=== PATIENT | male | born 1965 | race Caucasian/White ===

== ENCOUNTER 2017-09-07 21:48 | Emergency (ER) | payer OTHER ==
[2017-09-07 23:23] VITALS: RESP 18
[2017-09-07] MEDS ORDERED: IBUPROFEN 800 MG TAB PO STA (23:52)
--- NOTE | 2017-09-07 23:55 | ED ---
Chest Pain HPI - General Chief Complaint: Chest Pain Stated Complaint: Muscle pain Time Seen by Provider: 09/07/17 23:40 Source: patient, RN notes reviewed Mode of arrival: ambulatory Limitations: no limitations - History of Present Illness Initial Comments: 23:40 this is a 52-year-old male who states he had the onset of left sided chest pain over last several days after bending over a couch initially popping sensation to his left anterior chest. He denies any fevers chills nausea vomiting sweats no cough chest pain with certain movements and deep breathing. He states that sharp and stabbing rather severe. He did not take any pain medications today 4. He has no ALLERGIES to anything. - Related Data Home Medications Medication Instructions Recorded Confirmed Albuterol Inhaler [Ventolin Hfa 2 puff INHALATION RT-Q6H PRN 05/31/16 05/31/16 Inhaler] Atenolol 100 mg PO DAILY 05/31/16 05/31/16 Atorvastatin [Lipitor] 20 mg PO HS 05/31/16 05/31/16 Buprenorphine HCl/Naloxone HCl 1 film SL BID 05/31/16 05/31/16 [Suboxone 4 mg-1 mg Sl Film] FLUoxetine HCL 40 mg PO DAILY 05/31/16 05/31/16 Meloxicam [Mobic] 7.5 mg PO BID 05/31/16 05/31/16 OLANZapine [ZyPREXA] 2.5 mg PO DAILY 05/31/16 05/31/16 Phentermine HCl [Adipex-P] 37.5 mg PO DAILY 05/31/16 05/31/16 Propylthiouracil 50 mg PO BID 05/31/16 05/31/16 cloNIDine HCL [Catapres] 0.1 mg PO TID 05/31/16 05/31/16 Previous Rx's Medication Instructions Recorded Ibuprofen 800 mg PO Q6HR PRN #20 tablet 09/08/17 Allergies Allergy/AdvReac Type Severity Reaction Status Date / Time No Known Allergies Allergy Verified 09/07/17 23:23 Review of Systems ROS Statement: Those systems with pertinent positive or pertinent negative responses have been documented in the HPI. ROS Other: All systems not noted in ROS Statement are negative. EKG Findings - EKG Results: EKG: interpreted by ДМИТРИЙ, sinus rhythm (Sinus rhythm with a rate of 62. We'll 174 QRS duration 96. QT since QTC of 46/412 this is normal. EKG with some artifact present.) Past Medical History Past Medical History: COPD, Hypertension History of Any Multi-Drug Resistant Organisms: None Reported Past Surgical History: No Surgical Hx Reported Past Psychological History: Anxiety, Depression Smoking Status: Current every day smoker Past Alcohol Use History: None Reported Past Drug Use History: None Reported General Exam - General Exam Comments Initial Comments: This is a well-developed well-nourished awake alert oriented 3 male Limitations: no limitations General appearance: alert, in no apparent distress Head exam: Present: atraumatic, normocephalic, normal inspection Eye exam: Present: normal appearance, PERRL, EOMI. Absent: scleral icterus, conjunctival injection, periorbital swelling ENT exam: Present: normal exam, mucous membranes moist Neck exam: Present: normal inspection. Absent: tenderness, meningismus, lymphadenopathy Respiratory exam: Present: normal lung sounds bilaterally, chest wall tenderness (Reproducible tenderness palpation of the left costochondral margin and costosternal margin. No definite step-off or crepitation no gross deformity.). Absent: respiratory distress, wheezes, rales, rhonchi, stridor Cardiovascular Exam: Present: regular rate, normal rhythm, normal heart sounds. Absent: systolic murmur, diastolic murmur, rubs, gallop, clicks GI/Abdominal exam: Present: soft, normal bowel sounds. Absent: distended, tenderness, guarding, rebound, rigid Extremities exam: Present: normal inspection, full ROM, normal capillary refill. Absent: tenderness, pedal edema, joint swelling, calf tenderness Back exam: Present: normal inspection Neurological exam: Present: alert, oriented X3, CN II-XII intact Psychiatric exam: Present: normal affect, normal mood Skin exam: Present: warm, dry, intact, normal color. Absent: rash Course Vital Signs 09/07/17 09/08/17 23:20 00:19 Temperature 97.1 F L 97.5 F L Pulse Rate 64 63 Respiratory 18 18 Rate Blood Pressure 202/78 169/82 O2 Sat by Pulse 96 96 Oximetry Chest Pain MDM - MDM I did review the imaging and reports no acute findings. I did discuss the findings with the patient the presentation is consistent with costochondritis. 3 place on anti-inflammatories. Patient is a smoker we did discuss the need for smoking cessation. Patient does state he is down to about less than 1 pack per day. Disposition Clinical Impression: Costalchondritis, Chest wall syndrome Disposition: HOME SELF-CARE Condition: Good Instructions: Costochondritis (ED) Prescriptions: Ibuprofen 800 mg PO Q6HR PRN #20 tablet PRN Reason: Pain Referrals: Dinesh Kirkpatrick MD [Primary Care Provider] - 1-2 days
[2017-09-08 00:20] VITALS: BP 169/82; PULSE 63
--- NOTE | 2017-09-08 00:29 | XR ---
EXAMINATION TYPE: XR ribs LT w pa chest xray DATE OF EXAM: 09/08/2017 COMPARISON: 05/31/2016 HISTORY: Chest pain TECHNIQUE: 4 views FINDINGS: Heart and mediastinum are normal. Lungs are clear. Diaphragm is normal. Left ribs appear in tact. There is no sign of pleural effusion or pneumothorax. IMPRESSION: Normal chest. Normal left ribs. No change.
[2017-09-08 01:06] VITALS: TEMP 97.9
== END 2017-09-08 01:06 | disposition home or self-care (01) ==
LOC: EC 21:48
DX: M94.0 Chondrocostal junction syndrome [Tietze] (principal); I10 Essential (primary) hypertension; F32.9 Major depressive disorder, single episode, unspecified; F41.9 Anxiety disorder, unspecified; F17.200 Nicotine dependence, unspecified, uncomplicated; Z79.1 Long term (current) use of non-steroidal anti-inflammatories (NSAID); Z79.899 Other long term (current) drug therapy
CPT/HCPCS: 93005; 99285

== ENCOUNTER 2019-02-13 02:04 | Inpatient (IN) | payer MEDICAID, OTHER ==
--- NOTE | 2019-02-13 02:25 | ED ---
Psych HPI - General Source: patient, RN notes reviewed, old records reviewed Mode of arrival: ambulatory - History of Present Illness MD Complaint: suicidal ideation, feels depressed -: unknown Associated Psychiatric Symptoms: depression, suicidal ideation History of same: Yes Improves With: none Worsens With: none Context: recent alcohol abuse Associated Symptoms: denies other symptoms Treatments Prior to Arrival: placed on mental health hold If Self Harm: admits thoughts of self harm <Narciso Merritt - Last Filed: 02/13/19 02:24> <Jese Valencia - Last Filed: 02/13/19 06:55> - General Chief Complaint: Psychiatric Symptoms Stated Complaint: Mental Health Time Seen by Provider: 02/13/19 02:18 - History of Present Illness Initial Comments: This is a 54-year-old male brought to ER for evaluation. Patient's but ER for evaluation of psychiatric illness, history of mental health. History of alcohol use today. Patient admits to positive psychiatric illness, but in by PD (Narciso Merritt) - Related Data Home Medications Medication Instructions Recorded Confirmed No Known Home Medications 02/13/19 02/13/19 Allergies Allergy/AdvReac Type Severity Reaction Status Date / Time No Known Allergies Allergy Verified 09/07/17 23:23 Review of Systems ROS Other: All systems not noted in ROS Statement are negative. <Narciso Merritt - Last Filed: 02/13/19 02:24> ROS Other: All systems not noted in ROS Statement are negative. <Jese Valencia - Last Filed: 02/13/19 06:55> ROS Statement: Those systems with pertinent positive or pertinent negative responses have been documented in the HPI. Past Medical History Past Medical History: COPD, Hypertension History of Any Multi-Drug Resistant Organisms: None Reported Past Surgical History: No Surgical Hx Reported Past Psychological History: Anxiety, Depression Smoking Status: Current every day smoker Past Alcohol Use History: None Reported Past Drug Use History: None Reported <Narciso Merritt - Last Filed: 02/13/19 02:24> General Exam Limitations: no limitations General appearance: alert, in no apparent distress Head exam: Present: atraumatic, normocephalic, normal inspection Eye exam: Present: normal appearance, PERRL, EOMI. Absent: scleral icterus, conjunctival injection, periorbital swelling ENT exam: Present: normal exam, mucous membranes moist Neck exam: Present: normal inspection. Absent: tenderness, meningismus, lymphadenopathy Respiratory exam: Present: normal lung sounds bilaterally. Absent: respiratory distress, wheezes, rales, rhonchi, stridor Cardiovascular Exam: Present: regular rate, normal rhythm, normal heart sounds. Absent: systolic murmur, diastolic murmur, rubs, gallop, clicks GI/Abdominal exam: Present: soft, normal bowel sounds. Absent: distended, tenderness, guarding, rebound, rigid Extremities exam: Present: normal inspection, full ROM, normal capillary refill. Absent: tenderness, pedal edema, joint swelling, calf tenderness Back exam: Present: normal inspection Neurological exam: Present: alert, oriented X3, CN II-XII intact Psychiatric exam: Present: normal affect, normal mood Skin exam: Present: warm, dry, intact, normal color. Absent: rash <Narciso Merritt - Last Filed: 02/13/19 02:24> Course <Nacriso Merritt - Last Filed: 02/13/19 02:24> Vital Signs 02/13/19 02:10 Temperature 98.2 F Pulse Rate 102 H Respiratory 20 Rate Blood Pressure 184/98 O2 Sat by Pulse 96 Oximetry - Reevaluation(s) Reevaluation #1: 02/13/19 02:25 Medical clear for psychiatric illness (Narciso Merritt) Medical Decision Making <Jese Valencia - Last Filed: 02/13/19 06:55> - Medical Decision Making The patient was evaluated by psych service and will be admitted for inpatient treatment. He was physically and verbally threatening and did require chemical sedation. (Jese Valencia) Disposition <Narciso Merritt - Last Filed: 02/13/19 02:24> <Jese Valencia - Last Filed: 02/13/19 06:55> Clinical Impression: Depression, Suicidal ideation Disposition: TRANSFER TO PSYCH HOSP/UNIT Condition: Stable
[2019-02-13] MEDS ORDERED: ZIPRASIDONE 20 MG VIAL IM STA (05:39)
[2019-02-13] MEDS ORDERED: LORazepam 2 MG/ML INJ IM STA (05:40)
[2019-02-13] MEDS ORDERED: ZIPRASIDONE 20 MG VIAL IM PRN (06:15)
[2019-02-13] MEDS ORDERED: MAGNESIUM HYDROXIDE 2,400 MG/10 ML CUP PO PRN (06:15)
[2019-02-13] MEDS ORDERED: MAG HYDROX/AL HYDROX/SIMETH 30 ML CUP PO PRN (06:15)
[2019-02-13] MEDS ORDERED: LORazepam 2 MG/ML INJ IM PRN (06:18)
--- NOTE | 2019-02-13 07:49 | ED ---
Medical Decision Making - Medical Decision Making A clinical certification was filled out by me. Disposition Clinical Impression: Depression, Suicidal ideation Disposition: TRANSFER TO PSYCH HOSP/UNIT Condition: Stable
[2019-02-13 08:41] VITALS: BMI 27.7
[2019-02-13] MEDS: NICOTINE 14MG/24HR PATCH TRANSDERM SCH (10:48)
--- NOTE | 2019-02-13 14:24 | P.HP ---
Psychiatric H&P - . H&P Date: 02/13/19 History & Physical: Allergies Allergy/AdvReac Type Severity Reaction Status Date / Time No Known Allergies Allergy Verified 09/07/17 23:23 Vital Signs Temp 98.1 F 02/13/19 08:51 Pulse 95 02/13/19 08:51 Resp 16 02/13/19 08:51 BP 140/80 02/13/19 08:51 Pulse Ox 95 02/13/19 08:51 Intake & Output 02/12/19 02/13/19 02/13/19 18:59 06:59 18:59 Weight 90.174 kg 89.4 kg 02/13/19 14:15 Identification: Patient is a 54-year-old male who was brought to the emergency room after trying to cut his left wrist, stating that he wanted to kill himself and he is a burden to everybody History of Present Illness: Patient states that he tried to cut his forehead, cut his left wrist and drank a 12 pack of beer yesterday because he was feeling depressed. He states he is been feeling depressed for 10 years. Patient states that he can identify no current problems that precipitated this. He states that he's been treated by his primary care physician and a number of years ago with Zyprexa and Prozac and did better when he stopped seeing the doctor for several years and so has not been on medication for the last several years. Patient states that he is not been sleeping well, feeling depressed, no motivation fee ling tired, more withdrawn and irritable. He states that he has felt this way for the last 10 years and at times when a fan is running he hears voices telling him to kill himself. He states that he heard them yesterday for the first time in a long time. He states he is unable to describe why he feels that he is a burden to everyone. Patient states that he has never attempted suicide in the past but has had suicidal thoughts in the past. Patient states that he's been drinking a 12 pack several week for the last several months and states that he has been sober for a number of years prior to this. He states when he was in his 20s he was drinking a half gallon of liquor on the weekends. Patient can describe not other precipitants recently to his restarting his use of alcohol. Patient does not endorse a history of manic symptoms, paranoid ideation or anxiety. He reports no prior treatment other than with his primary care physician with an unknown dosage of Zyprexa and an unknown dosage of Prozac for several years and then he stopped taking them. Past Psychiatric History: No prior inpatient history, prior treatment by PCP was Zyprexa and Prozac none for the last several years Past Medical/Surgical History: Patient has COPD and hypertension and is currently not on medication no surgical history Family History: Patient states that his mother has an unknown psychiatric disor josefina, there are no alcohol or drug problems in the family and no one is completed suicide Social History: Patient was born in [place] and raised in [place] and his parents when he was 9 years of age and his mother several times. He has 2 brothers and one sister. 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 He been for 34 years and has 4 sons all of whom are living out of the house. He states his does work. He lives with his and is not currently employed supported on disability. He denies any abuse history. Substance Use History: Patient states he began using alcohol at the age of 15 and when he was in his 20s drinking a half gallon on the weekends he states that he quit for a number of years sometime in his early 30s and began drinking several months ago using a 12 pack several times a week. Patient states he began using marijuana at the age of 18 and has continued to use it on a daily basis. He denies any other drug use history and states that he does use tobacco products Legal History: Patient states he was charged with assault in the past Mental status: Appearance/Attitude: Patient is dressed in a hospital gown, has multiple superficial cuts on his for head and several also on his left wrist, he makes intermittent eye contact and is cooperative Behavior: Patient does not display any psychomotor agitation or retardation. Speech/Language: Speech is spontaneous of normal volume and rhythm and he is coherent. Thought Process: Patient is goal-directed there is no evidence of loose association or flight of ideas Thought Content: Patient states he is not currently hearing voices but did hear them yesterday, denies any visual hallucinations and no delusions or paranoid ideation or elicited. Patient states that he is feeling depressed, withdrawn tired with little energy or interest to do things. Patient states that he also feels like he is a burden to everyone and has not been sleeping well. Suicidal/Homicidal Ideation: Patient denies any current suicidal or homicidal ideation Sensorium/Cognition: Patient is alert and oriented to person, place, and time and his recent and remote memory are grossly intact Mood/Affect: Patient's mood is depressed and his affect is blunted Insight/Judgment: Patient's insight and judgment are fair Intellectual Functioning: Patient's intellectual functioning appears average Strength/Weakness: Patient has housing financial support/use of alcohol and drugs, lack of compliance with treatment Assessment: She presents with a history of depression for a number of years having only received treatment for several years from his primary care physician. Patient reports no symptoms of farrah, anxiety and states that in the past when fan has been running he's heard voices telling him to hurt himself and of a derogatory nature. He states that he has used alcohol since he was in his teens and began using alcohol again several months ago at a 12 pack several week. Patient states that he is unable to report why he restarted using alcohol and did yesterday hear voices telling him to kill himself. Patient reports feeling tired, having poor sleep no motivation, socially withdrawn as well as feeling a burden to everybody. Patient states he is currently not hearing voices and is currently not feeling suicidal and was ambivalent about remaining in the hospital. Admission Diagnosis: Major depressive disorder, recurrent, severe; alcohol use disorder, moderate; cannabis use disorder, moderate Plan: Patient was admitted on a voluntary basis, placed on routine observation in group and activity therapy were ordered. Patient also had routine laboratory studies as well as a medical consultation. Patient and I discussed treating his depression and we agreed to restart Prozac as the patient felt that it been helpful in the past and I reviewed the use and side effects and he will begin 20 mg in the morning. At this time we're not beginning an antipsychotic as the patient was intoxicated yesterday and is currently not hearing voices. Patient will also be seen by the medical territory manager and should he require medication for his blood pressure they will be prescribing it as he has not been taking meds for several years. Patient was encouraged to attend groups and activities. Patient requires hospitalization to stabilize his mood.
--- NOTE | 2019-02-13 15:05 | P.CONS ---
History of Present Illness - Reason for Consult Consult date: 02/13/19 Medical management COPD, hypertension, nicotine dependence Requesting physician: Harriett Rodriguez - Chief Complaint suicidal, depression - History of Present Illness This is a 54-year-old gentleman with history of COPD, hypertension, anxiety, depression, ongoing nicotine dependence, uses Xanax off the street to calm himself down, brought into the ER by police department for further evaluation of psychiatric illness, alcohol abuse, depression, suicidal and multiple other medical issues.apparently spouse Petitiioned patient secondary to suicidal ideation with patient performing superficial cuts of the left wrist, forehead and nose,consuming alcohol. Once in the ER,became agitated, physically and verbally threatening.Evaluated by psychiatry,sarthak Mclaughlin admitted to mental health unit.Denies chest pain, palpitations or shortness of breath. Review of Systems ROS Statement: Those systems with pertinent positive or pertinent negative responses have been documented in the HPI. ROS Other: All systems not noted in ROS Statement are negative. Past Medical History Past Medical History: COPD, Hypertension History of Any Multi-Drug Resistant Organisms: None Reported Past Surgical History: No Surgical Hx Reported Smoking Status: Current every day smoker Medications and Allergies Home Medications Medication Instructions Recorded Confirmed Type No Known Home Medications 02/13/19 02/13/19 History Allergies Allergy/AdvReac Type Severity Reaction Status Date / Time No Known Allergies Allergy Verified 09/07/17 23:23 Physical Exam Vitals: Vital Signs Temp Pulse Pulse Resp BP BP Pulse Ox 02/13/19 08:51 98.1 F 95 16 140/80 95 02/13/19 08:35 98.1 F 95 16 140/80 95 02/13/19 02:10 98.2 F 102 H 20 184/98 96 Intake and Output 02/12/19 02/13/19 02/13/19 22:59 06:59 14:59 Other: Weight 90.174 kg 89.4 kg Assessment and Plan Assessment: -Suicidal, -Depression -Alcohol abuse -COPD, stable -Hypertension -Ongoing nicotine dependence -Polysubstance abuse, including Xanax off the street Plan: Continue on current medication regime ,monitoring and symptomatic treatment. Her moods have been reviewed and resumed, accordingly. Nicotine patch added to med regime, smoking cessation readdressed. Follow closely with psychiatry. Further recommendations to follow. The impression and plan of care has been dictated as directed. : I performed a history and examination of this patient, discussed the same with the dictator. I agree with the dictator's note ,documented as a scribe. Any additional findings or plans will be noted. Time taken: 35 minutes
[2019-02-13] MEDS: BACITRACIN 500 UNIT/GM OINT 28.4 GM TUBE TOPICAL SCH (21:08)
[2019-02-14] MEDS: ACETAMINOPHEN TAB 325 MG TAB PO PRN (01:45)
[2019-02-14] MEDS: LORazepam 1 MG TAB PO PRN ×3 (01:47→22:50)
[2019-02-14] MEDS: FLUoxetine HCL 20 MG CAP PO SCH (08:08)
[2019-02-14] MEDS: BACITRACIN 500 UNIT/GM OINT 28.4 GM TUBE TOPICAL SCH ×2 (08:08→20:43)
[2019-02-14] MEDS: NICOTINE 14MG/24HR PATCH TRANSDERM SCH (08:08)
[2019-02-14] MEDS: ALBUTEROL INHALER 60 PUFF/8 GM INHALER INHALATION PRN ×2 (08:11→18:28)
[2019-02-14 08:54] LABS: Basophils # (A) 0.1 k/uL (0-0.2); Basophils % (A) 1 %; Eosinophils # (A) 0.2 k/uL (0-0.7); Eosinophils % (A) 2 %; HCT 55.7 % (39.0-53.0); HGB 18.5 gm/dL (13.0-17.5); Lymphocytes # (A) 3.4 k/uL (1.0-4.8); Lymphocytes % (A) 31 %; MCH 29.9 pg (25.0-35.0); MCHC 33.2 g/dL (31.0-37.0); MCV 90.2 fL (80.0-100.0); Mean Platelet Volume 7.7; Monocytes # (A) 0.6 k/uL (0-1.0); Monocytes % (A) 5 %; Neutrophils # (A) 6.5 k/uL (1.3-7.7); Neutrophils % (A) 59 %; Platelet Count 229 k/uL (150-450); RBC 6.17 m/uL (4.30-5.90); RDW 13.2 % (11.5-15.5); WBC 11.1 k/uL (3.8-10.6)
[2019-02-14] MEDS ORDERED: amLODIPine 5 MG TAB PO SCH (09:00)
[2019-02-14 09:12] LABS: ALT 21 U/L (21-72); AST 35 U/L (17-59); African American GFR (CKD) >90 (>60 ml/min/1.73 sqM); Alkaline Phosphatase 45 U/L (38-126); Anion Gap 9 mmol/L; Bilirubin, Delta 0.3 mg/dL (0.0-0.2); Bilirubin,Unconjugated 0.8 mg/dL (0.0-1.1); Blood Urea Nitrogen 20 mg/dL (9-20); Carbon Dioxide 29 mmol/L (22-30); Chloride 101 mmol/L (98-107); Cholesterol 239 mg/dL (<200); Glucose 105 mg/dL (74-99); HDL Cholesterol 79 mg/dL (40-60); LDL Cholesterol,Calculated 129 mg/dL (0-99); Potassium 5.3 mmol/L (3.5-5.1); Sodium 139 mmol/L (137-145); Total Bilirubin 1.1 mg/dL (0.2-1.3); Total Protein 7.8 g/dL (6.3-8.2); Triglycerides 156 mg/dL (<150)
--- NOTE | 2019-02-14 14:01 | P.PN ---
Progress Note - Text Progress Note Date: 02/14/19 Interval History: Patient is a 54-year-old male who was seen today who reports that he hasn't really been drinking that frequently her that much and states he must not be able to hold his alcohol because attempting suicide is not something that he would do. He does acknowledge that he has been feeling depressed, but denies that he is feeling a burden to his family. Patient states that he doesn't attend groups or activities because he has problems and small groups. 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 Mental Status: Appearance/Attitude: Patient is neatly dressed, makes eye contact and was cooperative Behavior: Patient does not exhibit any psychomotor agitation or retardation. Speech/Language: Speech is spontaneous of normal volume and rhythm and he is coherent Thought Process: Patient is goal-directed there is no evidence of loose association or flight of ideas Thought Content: Patient denies any auditory or visual hallucinations no delusions or paranoid ideation or elicited. Patient states that he's still feeling depressed, doesn't sleep well at night because he usually is up in the middle the night to help his with her paper route. He states he is not attending groups or activities because he gets anxious in groups of people. Patient denies any sweating, shaking or difficulty eating Suicidal/Homicidal Ideation: Patient denies any current suicidal or homicidal ideation Sensorium/Cognition: Patient is alert and oriented to person, place, and time and his recent and remote memory grossly intact Mood/Affect: Patient's mood remains slightly depressed and his affect blunted Insight/Judgment: Patient's insight and judgment are fair Assessment: Patient states that he still feeling depressed, he has been able to eat not having any sweating or shaking. Patient states that he hasn't been attending groups or activities because he gets anxious in groups. Patient states that this almost of occurred because he had a bad reaction to the alcohol. Patient states that he didn't think he drank that much. Patient reports that his any side effects from the Prozac. 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 Plan: Patient will continue on Prozac 20 mg in the morning to target his mood and melatonin 3 mg to assist with sleep. Patient and I discussed possible discharge early next week should the patient's symptoms improve. Patient continues to require hospitalization at this time to target his mood.
[2019-02-14] MEDS ORDERED: amLODIPine 5 MG TAB PO STA (15:04)
[2019-02-14 19:13] LABS: Hemoglobin A1C 5.7 % (4.0-6.0)
[2019-02-14] MEDS: MELATONIN 3 MG TABLET PO SCH (20:41)
[2019-02-14] MEDS: ATENOLOL 25 MG TAB PO SCH (21:50)
[2019-02-15] MEDS: NICOTINE 14MG/24HR PATCH TRANSDERM SCH (07:50)
[2019-02-15] MEDS: amLODIPine 10 MG TAB PO SCH (07:51)
[2019-02-15] MEDS: FLUoxetine HCL 20 MG CAP PO SCH (07:51)
[2019-02-15] MEDS: BACITRACIN 500 UNIT/GM OINT 28.4 GM TUBE TOPICAL SCH ×2 (07:51→20:10)
[2019-02-15] MEDS: ATENOLOL 25 MG TAB PO SCH (07:51)
[2019-02-15] MEDS: ALBUTEROL INHALER 60 PUFF/8 GM INHALER INHALATION PRN ×2 (08:22→18:27)
--- NOTE | 2019-02-15 10:02 | P.PN ---
Progress Note - Text Interval history: The patient's found in his room he follows me to an interview room. The patient states that he was admitted after he attempted suicide while intoxicated with alcohol. He had apparently cut his left anterior wrist several times superficially. Today he states that he is not suicidal and it was only because he had a bad reaction alcohol that this happened. He admits that he has been depressed. He previously had been prescribed Prozac in the past and had been off of it for 2 years and the medicine has been restarted. He has no questions or concerns regarding Prozac. He states that he has decided he would no longer use alcohol and doesn't need any further treatment for substance use. He has not been attending groups. We discussed the importance of attending groups in terms of coping skill development and assisting us in evaluating him. He will give that consideration. He expects that his may visit this evening. Mental status exam: The patient is alert he is dressed in his own clothing. Hygiene grooming adequate. Speech is fluent and spontaneous nonpressured. He denies having any suicidal or homicidal ideation intent or plan. He states his mood is all right. He reports no auditory or visual hallucinations or any specific delusions. He demonstrates no tangential thinking loose associations or flight of ideas. He does not appear hypomanic or manic. Insight and judgment grossly intact. He demonstrates no verbal or physical aggressiveness. He demonstrates no visible signs of alcohol withdrawal in terms of tremor. Affect remains constricted throughout the session. He remains oriented to person place and date. Plan: Depression, the patient will continue on the Prozac as written. He is encouraged to participate in the milieu. Vital signs reviewed. We will continue to monitor him for safety. We will look for input from his family after they visit this weekend.
[2019-02-15] MEDS: ACETAMINOPHEN TAB 325 MG TAB PO PRN (10:22)
[2019-02-15] MEDS: MELATONIN 3 MG TABLET PO SCH (20:10)
[2019-02-15] MEDS: LORazepam 1 MG TAB PO PRN (20:10)
[2019-02-16] MEDS: ALBUTEROL INHALER 60 PUFF/8 GM INHALER INHALATION PRN ×3 (05:46→19:28)
[2019-02-16] MEDS: ACETAMINOPHEN TAB 325 MG TAB PO PRN (06:45)
[2019-02-16] MEDS: amLODIPine 10 MG TAB PO SCH (08:16)
[2019-02-16] MEDS: FLUoxetine HCL 20 MG CAP PO SCH (08:16)
[2019-02-16] MEDS: BACITRACIN 500 UNIT/GM OINT 28.4 GM TUBE TOPICAL SCH ×2 (08:17→20:49)
[2019-02-16] MEDS: NICOTINE 14MG/24HR PATCH TRANSDERM SCH (08:17)
[2019-02-16] MEDS: ATENOLOL 25 MG TAB PO SCH (08:17)
[2019-02-16] MEDS: LORazepam 1 MG TAB PO PRN (13:15)
--- NOTE | 2019-02-16 13:28 | P.PN ---
Progress Note - Text Interval history: The patient is found in his room reading a book he follows me to an interview room. He states his mood is fine. Several times he indicates he would like to be discharged as soon as possible. He reports that he is concerned about his who has difficulties with her knee and she needs his help at home. He has no questions or concerns regarding the Prozac. Continues to refuse attending groups. Mental status exam: The patient is alert he is dressed in his own clothing. He has numerous visible tattoos. Hygiene grooming adequate. Speech is fluent spontaneous nonpressured. Thought process is linear. He is reporting no suicidal or homicidal ideation intent or plan. Reporting no auditory or visual hallucinations or any specific delusions. There is no observed evidence of psychosis. He demonstrates no symptoms of hypomania or farrah. Insight and judgment improving. He demonstrates no verbal or physical aggressiveness. He remains oriented to person place and date. He demonstrates no evidence of tremors related to alcohol withdrawal. Plan: The patient will continue on current medication. Although he is refusing he is encouraged to attempt group participation. Vital signs reviewed. We will continue monitoring him for safety. It does appear he is clinically stabilizing.
[2019-02-16] MEDS: MELATONIN 3 MG TABLET PO SCH (20:50)
[2019-02-17 06:38] VITALS: TEMP 97.7
[2019-02-17] MEDS: FLUoxetine HCL 20 MG CAP PO SCH (08:05)
[2019-02-17] MEDS: amLODIPine 10 MG TAB PO SCH (08:05)
[2019-02-17] MEDS: ATENOLOL 25 MG TAB PO SCH (08:05)
[2019-02-17] MEDS: NICOTINE 14MG/24HR PATCH TRANSDERM SCH (08:05)
[2019-02-17] MEDS: BACITRACIN 500 UNIT/GM OINT 28.4 GM TUBE TOPICAL SCH (08:05)
[2019-02-17 09:06] VITALS: BP 141/83; PULSE 81; RESP 18
[2019-02-17] MEDS: ALBUTEROL INHALER 60 PUFF/8 GM INHALER INHALATION PRN (09:16)
--- NOTE | 2019-02-17 11:44 | P.DS ---
Providers Date of admission: 02/13/19 05:30 Expected date of discharge: 02/17/19 Attending physician: Harriett Rodriguez MD Consults: 02/13/19 06:15 Consult Physician Routine Consulting Provider: Dinesh Kirkpatrick Consult Reason/Comments: For H & P for Medical Follow Up Do you want consulting provider notified?: Already Contacted Primary care physician: Dinesh Kirkpatrick Hospital Course: Discharge Diagnosis: Major depressive disorder, recurrent severe; alcohol use disorder, moderate; cannabis use disorder, moderate Reason for Admission: Patient is a 54-year-old male who was brought to the emergency room after trying to cut his left wrist, stating that he wanted to kill himself and he is a burden to everybody. Patient states that he tried to cut his forehead, cut his left wrist and drank a 12 pack of beer yesterday because he was feeling depressed. He states he is been feeling depressed for 10 years. Patient states that he can identify no current problems that precipit ated this. He states that he's been treated by his primary care physician and a number of years ago with Zyprexa and Prozac and did better when he stopped seeing the doctor for several years and so has not been on medication for the last several years. Patient states that he is not been sleeping well, feeling depressed, no motivation feeling tired, more withdrawn and irritable. He states that he has felt this way for the last 10 years and at times when a fan is running he hears voices telling him to kill himself. He states that he heard them yesterday for the first time in a long time. He states he is unable to describe why he feels that he is a burden to everyone. Patient states that he has never attempted suicide in the past but has had suicidal thoughts in the past. Patient states that he's been drinking a 12 pack several week for the last several months and states that he has been sober for a number of years prior to this. He states when he was in his 20s he was drinking a half gallon of liquor on the weekends. Patient can describe not other precipitants recently to his restarting his use of alcohol. Patient does not endorse a history of manic symptoms, paranoid ideation or anxiety. He reports no prior treatment other than with his primary care physician with an unknown dosage of Zyprexa and an unknown dosage of Prozac for several years and then he stopped taking them. Mental status on Admission: Appearance/Attitude: Patient is dressed in a hospital gown, has multiple superficial cuts on his for head and several also on his left wrist, he makes intermittent eye contact and is cooperative Behavior: Patient does not display any psychomotor agitation or retardation. Speech/Language: Speech is spontaneous of normal volume and rhythm and he is coherent. Thought Process: Patient is goal-directed there is no evidence of loose association or flight of ideas Thought Content: Patient states he is not currently hearing voices but did hear them yesterday, denies any visual hallucinations and no delusions or paranoid ideation or elicited. Patient states that he is feeling depressed, withdrawn tired with little energy or interest to do things. Patient states that he also feels like he is a burden to everyone and has not been sleeping well. Suicidal/Homicidal Ideation: Patient denies any current suicidal or homicidal ideation Sensorium/Cognition: Patient is alert and oriented to person, place, and time and his recent and remote memory are grossly intact Mood/Affect: Patient's mood is depressed and his affect is blunted Insight/Judgment: Patient's insight and judgment are fair Hospital Course: Patient was admitted on a voluntary basis, placed on routine observation and group and activity therapy were ordered. Patient was also ordered routine laboratory studies as well as a medical consultation. Patient was seen by his primary care physician and started on a Ventolin inhaler, Norvasc, Tenormin and bacitracin was ordered for his superficial lacerations. Patient and I discussed the use and side effects of Prozac and he was begun on 20 mg to target his depressive symptoms and melatonin 3 mg at bedtime to assist with sleep. Patient and I also discussed his use of alcohol and marijuana and the need to discontinue them. Patient states that he improved, so longer feeling a burden to his family was no longer having suicidal thoughts and stated he felt more interested and motivated to do things. He states that he has also discussed abstaining his sons and their families to move out of the house. Patient states that he is no longer going to continue using alcohol or marijuana once he is released. Patient reported no side effects from the medication and felt he was ready to return home. Patient did not attend groups while he was on the unit stating that he did not like being around people and did not want a referral for any outpatient counseling stating that he's done it in the past. Patient states that he wishes his primary care physician to continue prescribing Prozac and melatonin. Patient refused any referrals for outpatient alcohol programs, recommended to attend AA meetings and she states that he will not be a ble to do because he can't tolerate being in groups of people. Allergies No Known Allergies Allergy (Verified 02/14/19 11:07) Laboratory Last Values WBC 11.1 k/uL (3.8-10.6) H 02/14/19 08:15 RBC 6.17 m/uL (4.30-5.90) H 02/14/19 08:15 Hgb 18.5 gm/dL (13.0-17.5) H 02/14/19 08:15 Hct 55.7 % (39.0-53.0) H 02/14/19 08:15 MCV 90.2 fL (80.0-100.0) 02/14/19 08:15 MCH 29.9 pg (25.0-35.0) 02/14/19 08:15 MCHC 33.2 g/dL (31.0-37.0) 02/14/19 08:15 RDW 13.2 % (11.5-15.5) 02/14/19 08:15 Plt Count 229 k/uL (150-450) 02/14/19 08:15 Neutrophils % 59 % 02/14/19 08:15 Lymphocytes % 31 % 02/14/19 08:15 Monocytes % 5 % 02/14/19 08:15 Eosinophils % 2 % 02/14/19 08:15 Basophils % 1 % 02/14/19 08:15 Neutrophils # 6.5 k/uL (1.3-7.7) 02/14/19 08:15 Lymphocytes # 3.4 k/uL (1.0-4.8) 02/14/19 08:15 Monocytes # 0.6 k/uL (0-1.0) 02/14/19 08:15 Eosinophils # 0.2 k/uL (0-0.7) 02/14/19 08:15 Basophils # 0.1 k/uL (0-0.2) 02/14/19 08:15 Sodium 139 mmol/L (137-145) 02/14/19 08:15 Potassium 5.5 mmol/L (3.5-5.1) H 02/15/19 07:56 Chloride 101 mmol/L (98-107) 02/14/19 08:15 Carbon Dioxide 29 mmol/L (22-30) 02/14/19 08:15 Anion Gap 9 mmol/L 02/14/19 08:15 BUN 20 mg/dL (9-20) 02/14/19 08:15 Creatinine 0.94 mg/dL (0.66-1.25) 02/14/19 08:15 Est GFR (CKD-EPI)AfAm >90 (>60 ml/min/1.73 sqM) 02/14/19 08:15 Est GFR (CKD-EPI)NonAf >90 (>60 ml/min/1.73 sqM) 02/14/19 08:15 Glucose 105 mg/dL (74-99) H 02/14/19 08:[address] Glu mg/dL 117 02/14/19 08:15 Hemoglobin A1c 5.7 % (4.0-6.0) 02/14/19 08:15 Calcium 10.0 mg/dL (8.4-10.2) 02/14/19 08:15 Total Bilirubin 1.1 mg/dL (0.2-1.3) 02/14/19 08:15 Conjugated Bilirubin 0.0 mg/dL (0.0-0.3) 02/14/19 08:15 Unconjugated Bilirubin 0.8 mg/dL (0.0-1.1) 02/14/19 08:15 Delta Bilirubin 0.3 mg/dL (0.0-0.2) H 02/14/19 08:15 AST 35 U/L (17-59) 02/14/19 08:15 ALT 21 U/L (21-72) 02/14/19 08:15 Alkaline Phosphatase 45 U/L (38-126) 02/14/19 08:15 Total Protein 7.8 g/dL (6.3-8.2) 02/14/19 08:15 Albumin 5.0 g/dL (3.5-5.0) 02/14/19 08:15 Triglycerides 156 mg/dL (<150) H 02/14/19 08:15 Cholesterol 239 mg/dL (<200) H 02/14/19 08:15 LDL Cholesterol, Calc 129 mg/dL (0-99) H 02/14/19 08:15 HDL Cholesterol 79 mg/dL (40-60) H 02/14/19 08:15 TSH 1.490 mIU/L (0.465-4.680) 02/14/19 08:15 Discharge Mental Status:Appearance/Attitude: Patient is neatly and appropriately dressed, makes eye contact, and is cooperative Behavior: Patient does not exhibit any psychomotor agitation or retardation. Speech/Language: Patient's speech is spontaneous of normal volume and rhythm and he is coherent Thought Process: Patient is goal-directed there is no evidence of loose association or flight of ideas Thought Content: Patient denied any auditory or visual hallucinations and no delusions or paranoid ideation were elicited. patient states that he is no longer feeling that he is a burden to his family. He states that he has have discussed asking her sons and their sons families to move out of the house, he states that he intends to quit drinking and using marijuana. Patient states he's been sleeping and eating well. But not attending groups or activities because he doesn't like being in groups of people. 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 Suicidal/Homicidal Ideation: Patient denied any current suicidal or homicidal ideation Sensorium/Cognition: Patient is alert and oriented to person, place, and time and his recent and remote memory are grossly intact Mood/Affect: Patient's mood is pleasant and his affect is appropriate Insight/Judgment: Patient's insight and judgment are fair Risk Assessment: Patient's risk for readmission is low should he be compliant with medication, avoid alcohol and drugs Discharge Plan: Patient will return home to live with his , he will continue on Prozac 20 mg at melatonin 3 mg at bedtime and will be given prescriptions for these medications, he will continue on his Ventolin inhaler, Norvasc, Tenormin for his medical problems and will be given prescriptions for these as well. patient declined a referral for any outpatient alcohol rehab programs, declined a referral for outpatient psychiatric care or counseling and states that he will follow-up with his primary care physician for his medications. Patient was advised to avoid all alcohol and drugs. Patient Condition at Discharge: Stable Plan - Discharge Summary Discharge Rx Participant: No New Discharge Prescriptions: New Melatonin 3 mg PO HS #28 tablet amLODIPine [Norvasc] 10 mg PO DAILY #14 tab FLUoxetine HCL [PROzac] 20 mg PO DAILY #14 cap Atenolol [Tenormin] 25 mg PO DAILY #14 tab Albuterol Inhaler [Ventolin Hfa Inhaler] 2 puff INHALATION RT-QID PRN #1 puff PRN Reason: Shortness Of Breath Or Wheezing Discharge Medication List Albuterol Inhaler [Ventolin Hfa Inhaler] 2 puff INHALATION RT-QID PRN #1 puff 02/17/19 [Rx] Atenolol [Tenormin] 25 mg PO DAILY #14 tab 02/17/19 [Rx] FLUoxetine HCL [PROzac] 20 mg PO DAILY #14 cap 02/17/19 [Rx] Melatonin 3 mg PO HS #28 tablet 02/17/19 [Rx] amLODIPine [Norvasc] 10 mg PO DAILY #14 tab 02/17/19 [Rx] Follow up Appointment(s)/Referral(s): Dinesh Kirkpatrick MD [Primary Care Provider] - 1-2 days Discharge Disposition: HOME SELF-CARE
== END 2019-02-17 13:00 | disposition home or self-care (01) | DRG 885 ==
LOC: EC 02:04 → 3MHU 05:30
PROVIDERS: ADMIT Psychiatry & Neurology Psychiatry; ATTEND Psychiatry & Neurology Psychiatry
DX: F33.2 Major depressive disorder, recurrent severe without psychotic features (principal); F10.129 Alcohol abuse with intoxication, unspecified; F12.10 Cannabis abuse, uncomplicated; F13.10 Sedative, hypnotic or anxiolytic abuse, uncomplicated; F17.210 Nicotine dependence, cigarettes, uncomplicated; I10 Essential (primary) hypertension; J44.9 Chronic obstructive pulmonary disease, unspecified; S61.512A Laceration without foreign body of left wrist, initial encounter; S01.81XA Laceration without foreign body of other part of head, initial encounter; X78.9XXA Intentional self-harm by unspecified sharp object, initial encounter; Z91.19 Patient's noncompliance with other medical treatment and regimen; R45.1 Restlessness and agitation; F41.9 Anxiety disorder, unspecified
CPT/HCPCS: 80053; 80061; 82075; 82248; 83036; 84132; 84443; 85025; 96372; 99285

== ENCOUNTER 2024-12-19 12:48 | Inpatient (IN) | payer OTHER ==
--- NOTE | 2024-12-19 13:24 | ED ---
General Adult HPI - General Chief complaint: Weakness Stated complaint: weak Time Seen by Provider: 12/19/24 12:50 Source: patient, RN notes reviewed Mode of arrival: ambulatory Limitations: no limitations - History of Present Illness Initial comments: Patient is a 59-year-old male present to the emergency department with concerns with general weakness. Symptoms have progressed over the past few weeks. Patient is having problems with dysphagia. Patient states he is having difficulty with swallowing and waiting for food to pass. Patient sometimes has emesis. Patient was having this occur daily however now only occurs about every other day. Patient has been started on Protonix twice daily. Patient is on Eliquis with history of A-fib. Hemoglobin was down to 7.9 a week or 2 ago with your primary care physician. Patient is having lightheadedness. Patient has exertional dyspnea. Patient just started iron 1 week ago. - Related Data Home Medications Medication Instructions Recorded Confirmed Apixaban [Eliquis] 5 mg PO BID 12/19/24 12/19/24 Atorvastatin [Lipitor] 20 mg PO HS 12/19/24 12/19/24 Buprenorphine HCl/Naloxone HCl 0.5 film SUBLINGUAL HS 12/19/24 12/19/24 [Suboxone 4 mg-1 mg Sl Film] Buprenorphine HCl/Naloxone HCl 1 film SUBLINGUAL DAILY 12/19/24 12/19/24 [Suboxone 4 mg-1 mg Sl Film] DULoxetine HCL [Cymbalta] 60 mg PO DAILY 12/19/24 12/19/24 Empagliflozin [Jardiance] 25 mg PO DAILY 12/19/24 12/19/24 Ferrous Sulfate [Feosol] 325 mg PO DAILY 12/19/24 12/19/24 Metoprolol Succinate (ER) [Toprol 50 mg PO DAILY 12/19/24 12/19/24 Xl] Pantoprazole [Protonix] 40 mg PO BID 12/19/24 12/19/24 Sucralfate [Carafate] 1 gm PO BID 12/19/24 12/19/24 Tamsulosin HCl [Flomax] 0.4 mg PO DAILY 12/19/24 12/19/24 Valsartan [Diovan] 160 mg PO DAILY 12/19/24 12/19/24 amLODIPine [Norvasc] 5 mg PO DAILY 05/16/25 05/16/25 metFORMIN HCL [metFORMIN HCL ER] 1,500 mg PO HS 12/19/24 12/19/24 Previous Rx's Medication Instructions Recorded Albuterol Inhaler [Ventolin Hfa 2 puff INHALATION RT-QID PRN #1 02/17/19 Inhaler] puff Allergies Allergy/AdvReac Type Severity Reaction Status Date / Time No Known Allergies Allergy Verified 12/19/24 15:17 Review of Systems ROS Statement: Those systems with pertinent positive or pertinent negative responses have been documented in the HPI. ROS Other: All systems not noted in ROS Statement are negative. Constitutional: Denies: fever Eyes: Denies: eye pain ENT: Denies: ear pain Respiratory: Reports: as per HPI. Denies: cough Cardiovascular: Reports: as per HPI, dyspnea on exertion Endocrine: Reports: fatigue Gastrointestinal: Denies: abdominal pain Musculoskeletal: Denies: back pain Past Medical History Past Medical History: Cancer, COPD, Hypertension Additional Past Medical History / Comment(s): Kidney cancer History of Any Multi-Drug Resistant Organisms: None Reported Past Surgical History: No Surgical Hx Reported Additional Past Surgical History / Comment(s): mass removed from kidney Past Anesthesia/Blood Transfusion Reactions: No Reported Reaction Past Psychological History: Anxiety, Bipolar, Depression Smoking Status: Current every day smoker Past Alcohol Use History: None Reported Past Drug Use History: Marijuana General Exam Limitations: no limitations General appearance: alert, in no apparent distress Head exam: Present: normocephalic Eye exam: Present: normal appearance ENT exam: Present: mucous membranes dry Neck exam: Present: normal inspection Respiratory exam: Present: normal lung sounds bilaterally Cardiovascular Exam: Present: regular rate, normal rhythm. Absent: irregular rhythm GI/Abdominal exam: Present: soft. Absent: tenderness Rectal exam: Present: normal inspection. Absent: black stool, bloody stool Extremities exam: Present: normal inspection. Absent: pedal edema, calf tenderness Neurological exam: Present: alert. Absent: motor sensory deficit Psychiatric exam: Present: normal affect, normal mood Skin exam: Present: normal color Course Vital Signs 12/19/24 12:57 Temperature 97.8 F Pulse Rate 101 H Respiratory 22 Rate Blood Pressure 117/70 O2 Sat by Pulse 98 Oximetry EKG Findings - EKG Results: EKG: interpreted by ERMD, sinus rhythm, normal axis, normal QRS, normal ST/T Medical Decision Making - Medical Decision Making Was pt. sent in by a medical professional or institution (DENISE Barrientos, INFORMATION SYSTEMS SECURITY ANALYST, urgent care, hospital, or [place] health care facility...) When possible be specific @ -Patient was sent in by Dr. Oconnell Did you speak to anyone other than the patient for history (EMS, parent, family, police, friend...)? What history was obtained from this source @ -History of from Dr. Kirkpatrick including concerns for anemia and weakness Did you review nursing and triage notes (agree or disagree)? Why? @ -I reviewed and agree with nursing and triage notes Were old charts reviewed (outside hosp., previous admission, EMS record, old EKG, old radiological studies, urgent care reports/EKG's, [place] health care facility records)? Report findings @ -No old charts were reviewed Differential Diagnosis (chest pain, altered mental status, abdominal pain women, abdominal pain men, vaginal bleeding, weakness, fever, dyspnea, syncope, hea dache, dizziness, GI bleed, back pain, seizure, CVA, palpatations, mental health, musculoskeletal)? @ -Differential Weakness: Hypoglycemia, shock, sepsis, hyponatremia, anemia, infection, [place], ETOH, adverse medicine reaction, overdose, stroke, this is not meant to be an all-inclusive list. EKG interpreted by me (3pts min.). @ -As above X-rays interpreted by me (1pt min.). @ -Chest x-ray does not reveal acute abnormality CT interpreted by me (1pt min.). @ -None done U/S interpreted by me (1pt. min.). @ -None done What testing was considered but not performed or refused? (CT, X-rays, U/S, labs)? Why? @ -CT scan abdomen pelvis ordered and chest. What meds were considered but not given or refused? Why? @ -None Did you discuss the management of the patient with other professionals (prof jordanionals i.e. DENISE Barrientos, INFORMATION SYSTEMS SECURITY ANALYST, lab, RT, psych nurse, psychotherapist social worker, medication technician, teacher, property utilization officer, case supervisor)? Give summary @ -Case was discussed with Dr. Israel who will admit covering Dr. Kirkpatrick Was smoking cessation discussed for >3mins.? @ -No Was critical care preformed (if so, how long)? @ -No Were there social determinants of health that impacted care today? How? (Homelessness, low income, unemployed, alcoholism, drug addiction, transportation, low edu. Level, literacy, decrease access to med. care, intermediate, rehab)? @ -No Was there de-escalation of care discussed even if they declined (Discuss DNR or withdrawal of care, Hospice)? DNR status @ -No What co-morbidities impacted this encounter? (DM, HTN, Smoking, COPD, CAD, Cancer, CVA, ARF, Chemo, Hep., AIDS, mental health diagnosis, sleep apnea, morbid obesity)? @ -None Was patient admitted / discharged? Hospital course, mention meds given and route, prescriptions, significant lab abnormalities, going to OR and other [facility] [place] info. @ -Patient presents with generalized weakness, lightheadedness and dysphagia and weight loss. Initial evaluation unremarkable. Patient will be admitted with surgical consult and CT scan. Patient is aware. Admission orders written Undiagnosed new problem with uncertain prognosis? @ -No Drug Therapy requiring intensive monitoring for toxicity (Heparin, Nitro, Insulin, Cardizem)? @ -No Were any procedures done? @ -No Diagnosis/symptom? @ -Dysphagia Acute, or Chronic, or Acute on Chronic? @ -Acute Uncomplicated (without systemic symptoms) or Complicated (systemic symptoms)? @ -Default Side effects of treatment? @ -No Exacerbation, Progression, or Severe Exacerbation? @ -No Poses a threat to life or bodily function? How? (Chest pain, [place], [place], pneumonia, PE, COPD, DKA, ARF, appy, cholecystitis, CVA, Diverticulitis, Homicidal, Suicidal, threat to staff... and all critical care pts) @ -No - Lab Data Result diagrams: 12/19/24 13:31 12/19/24 13:31 Lab Results 12/19/24 12/19/24 12/19/24 Range/Units 13:31 13:31 13:31 WBC 8.47 (4.50-10.00) 10*3/uL RBC 4.92 (4.40-5.60) 10*6/uL Hgb 8.6 L (13.0-17.0) g/dL Hct 31.4 L (39.6-50.0) % MCV 63.8 L (80.0-97.0) fL MCH 17.5 L (27.0-32.0) pg MCHC 27.4 L (32.0-37.0) g/dL Plt Count 324 (140-440) 10*3/uL MPV 10.0 (9.5-12.2) fL Immature Gran % (Auto) 0.5 % Neutrophils % 55.0 % Lymphocytes % 32.6 % Monocytes % 7.8 % Eosinophils % 2.6 % Basophils % 1.5 % Immature Gran # 0.04 (0.00-0.04) 10*3/uL Neutrophils # 4.66 (1.80-7.70) 10*3/uL Lymphocytes # 2.76 (0.90-5.00) 10*3/uL Monocytes # 0.66 (0.20-1.00) 10*3/uL Eosinophils # 0.22 (0.04-0.35) 10*3/uL Basophils # 0.13 H (0.00-0.10) 10*3/uL Immature Plt Fraction 3.4 (1.1-6.1) % PT 10.3 (10.0-12.5) sec INR 0.9 (<1.2) APTT 24.6 (22.0-30.0) sec Sodium 137 (137-145) mmol/L Potassium 4.2 (3.5-5.1) mmol/L Chloride 103 (98-107) mmol/L Carbon Dioxide 22 (22-30) mmol/L Anion Gap 12 mmol/L BUN 12 (9-20) mg/dL Creatinine 1.06 (0.66-1.25) mg/dL Est GFR (CKD-EPI)AfAm 89 (>60 ml/min/1.73 sqM) Est GFR (CKD-EPI)NonAf 77 (>60 ml/min/1.73 sqM) Glucose 100 H (74-99) mg/dL Lactic Ac Sepsis Rflx Plasma Lactic Acid Michael (0.7-2.0) mmol/L Calcium 9.1 (8.4-10.2) mg/dL Magnesium 2.0 (1.6-2.3) mg/dL Total Bilirubin 0.6 (0.2-1.3) mg/dL AST 22 (17-59) U/L ALT 12 (4-49) U/L Alkaline Phosphatase 39 (38-126) U/L Troponin I (0.000-0.034) ng/mL NT-Pro-B Natriuret Pep 82 pg/mL Total Protein 7.2 (6.3-8.2) g/dL Albumin 4.3 (3.5-5.0) g/dL Stool Occult Blood (Negative) 12/19/24 12/19/24 12/19/24 Range/Units 13:31 13:31 13:31 WBC (4.50-10.00) 10*3/uL RBC (4.40-5.60) 10*6/uL Hgb (13.0-17.0) g/dL Hct (39.6-50.0) % MCV (80.0-97.0) fL MCH (27.0-32.0) pg MCHC (32.0-37.0) g/dL Plt Count (140-440) 10*3/uL MPV (9.5-12.2) fL Immature Gran % (Auto) % Neutrophils % % Lymphocytes % % Monocytes % % Eosinophils % % Basophils % % Immature Gran # (0.00-0.04) 10*3/uL Neutrophils # (1.80-7.70) 10*3/uL Lymphocytes # (0.90-5.00) 10*3/uL Monocytes # (0.20-1.00) 10*3/uL Eosinophils # (0.04-0.35) 10*3/uL Basophils # (0.00-0.10) 10*3/uL Immature Plt Fraction (1.1-6.1) % PT (10.0-12.5) sec INR (<1.2) APTT (22.0-30.0) sec Sodium (137-145) mmol/L Potassium (3.5-5.1) mmol/L Chloride (98-107) mmol/L Carbon Dioxide (22-30) mmol/L Anion Gap mmol/L BUN (9-20) mg/dL Creatinine (0.66-1.25) mg/dL Est GFR (CKD-EPI)AfAm (>60 ml/min/1.73 sqM) Est GFR (CKD-EPI)NonAf (>60 ml/min/1.73 sqM) Glucose (74-99) mg/dL Lactic Ac Sepsis Rflx Plasma Lactic Acid Michael 2.2 H* (0.7-2.0) mmol/L Calcium (8.4-10.2) mg/dL Magnesium (1.6-2.3) mg/dL Total Bilirubin (0.2-1.3) mg/dL AST (17-59) U/L ALT (4-49) U/L Alkaline Phosphatase (38-126) U/L Troponin I <0.012 (0.000-0.034) ng/mL NT-Pro-B Natriuret Pep pg/mL Total Protein (6.3-8.2) g/dL Albumin (3.5-5.0) g/dL Stool Occult Blood Negative (Negative) 12/19/24 Range/Units 13:59 WBC (4.50-10.00) 10*3/uL RBC (4.40-5.60) 10*6/uL Hgb (13.0-17.0) g/dL Hct (39.6-50.0) % MCV (80.0-97.0) fL MCH (27.0-32.0) pg MCHC (32.0-37.0) g/dL Plt Count (140-440) 10*3/uL MPV (9.5-12.2) fL Immature Gran % (Auto) % Neutrophils % % Lymphocytes % % Monocytes % % Eosinophils % % Basophils % % Immature Gran # (0.00-0.04) 10*3/uL Neutrophils # (1.80-7.70) 10*3/uL Lymphocytes # (0.90-5.00) 10*3/uL Monocytes # (0.20-1.00) 10*3/uL Eosinophils # (0.04-0.35) 10*3/uL Basophils # (0.00-0.10) 10*3/uL Immature Plt Fraction (1.1-6.1) % PT (10.0-12.5) sec INR (<1.2) APTT (22.0-30.0) sec Sodium (137-145) mmol/L Potassium (3.5-5.1) mmol/L Chloride (98-107) mmol/L Carbon Dioxide (22-30) mmol/L Anion Gap mmol/L BUN (9-20) mg/dL Creatinine (0.66-1.25) mg/dL Est GFR (CKD-EPI)AfAm (>60 ml/min/1.73 sqM) Est GFR (CKD-EPI)NonAf (>60 ml/min/1.73 sqM) Glucose (74-99) mg/dL Lactic Ac Sepsis Rflx Y Plasma Lactic Acid Michael (0.7-2.0) mmol/L Calcium (8.4-10.2) mg/dL Magnesium (1.6-2.3) mg/dL Total Bilirubin (0.2-1.3) mg/dL AST (17-59) U/L ALT (4-49) U/L Alkaline Phosphatase (38-126) U/L Troponin I (0.000-0.034) ng/mL NT-Pro-B Natriuret Pep pg/mL Total Protein (6.3-8.2) g/dL Albumin (3.5-5.0) g/dL Stool Occult Blood (Negative) Disposition Clinical Impression: Dysphagia Disposition: ADMITTED IP TO THIS HOSP Is patient prescribed a controlled substance at d/c from ED?: No Referrals: Dinesh Kirkpatrick MD [Primary Care Provider] - 1-2 days Time of Disposition: 16:17
[2024-12-19] MEDS: PANTOPRAZOLE 40 MG/10 ML VIAL IVP STA (13:30)
[2024-12-19 13:44] LABS: Basophils # (A) 0.13 10*3/uL (0.00-0.10); Basophils % (A) 1.5 %; Eosinophils # (A) 0.22 10*3/uL (0.04-0.35); Eosinophils % (A) 2.6 %; HCT 31.4 % (39.6-50.0); HGB 8.6 g/dL (13.0-17.0); Immature Platelet Fraction 3.4 % (1.1-6.1); Lymphocytes # (A) 2.76 10*3/uL (0.90-5.00); Lymphocytes % (A) 32.6 %; MCH 17.5 pg (27.0-32.0); MCHC 27.4 g/dL (32.0-37.0); MCV 63.8 fL (80.0-97.0); Monocytes # (A) 0.66 10*3/uL (0.20-1.00); Monocytes % (A) 7.8 %; Neutrophils # (A) 4.66 10*3/uL (1.80-7.70); Platelet Count 324 10*3/uL (140-440); RBC 4.92 10*6/uL (4.40-5.60); RDW 21.6 % (11.5-14.5); WBC 8.47 10*3/uL (4.50-10.00)
[2024-12-19 13:55] LABS: INR 0.9 (<1.2); Partial Thromboplastin Time 24.6 sec (22.0-30.0); Prothrombin Time 10.3 sec (10.0-12.5)
[2024-12-19 13:58] LABS: ALT 12 U/L (4-49); AST 22 U/L (17-59); African American GFR (CKD) 89 (>60 ml/min/1.73 sqM); Albumin 4.3 g/dL (3.5-5.0); Alkaline Phosphatase 39 U/L (38-126); Anion Gap 12 mmol/L; Blood Urea Nitrogen 12 mg/dL (9-20); Calcium 9.1 mg/dL (8.4-10.2); Carbon Dioxide 22 mmol/L (22-30); Chloride 103 mmol/L (98-107); Glucose 100 mg/dL (74-99); Non-African American GFR(CKD) 77 (>60 ml/min/1.73 sqM); Potassium 4.2 mmol/L (3.5-5.1); Sodium 137 mmol/L (137-145); Total Bilirubin 0.6 mg/dL (0.2-1.3); Total Protein 7.2 g/dL (6.3-8.2)
--- NOTE | 2024-12-19 14:03 | XR ---
EXAMINATION TYPE: XR chest 2V DATE OF EXAM: 12/19/2024 1:49 PM COMPARISON: Chest radiographs from 09/08/2017 CLINICAL INDICATION: Male, 59 years old with history of Weakness; TECHNIQUE: XR chest 2V Frontal and lateral views of the chest. FINDINGS: Lungs/Pleura: There is no evidence of pleural effusion, focal consolidation, or pneumothorax. Pulmonary vascularity: Unremarkable. Heart/mediastinum: Cardiomediastinal silhouette is unremarkable. Musculoskeletal: No acute osseous pathology. Other findings: None IMPRESSION: No acute cardiopulmonary disease/process. [facility], , 12/19/2024 2:01 PM
[2024-12-19 14:04] LABS: NT-Pro-B-Type Natriuretic Pept 82 pg/mL
[2024-12-19] MEDS ORDERED: IOPAMIDOL CONTRAST (ORAL USE) VIAL PO PRN ×2 (16:12→18:26)
[2024-12-19] MEDS ORDERED: NALOXONE 0.4 MG/ML 1 ML VIAL IV PRN (16:18)
[2024-12-19] MEDS: NICOTINE 21MG/24HR PATCH TRANSDERM STA (17:59)
[2024-12-19] MEDS: SODIUM CHLORIDE 0.9% 1,000 ML IV SCH (17:59)
--- NOTE | 2024-12-19 18:10 | P.HPIM ---
History of Present Illness H&P Date: 12/19/24 Chief Complaint: Difficulty swallowing, weight loss This is a 59-year-old gentleman with past medical history significant for A-fib on Eliquis ,COPD, hypertension, anxiety, depression, ongoing nicotine dependence presented to the ER with progressive difficulty swallowing, 28 pound weight loss over 1 month accompanied by exertional shortness of breath , increased weakness and lightheadedness. Recently started on iron, Carafate and PPI with minimal improvement. Minimal diet intake, related to food getting stuck. Denies pain, denies chills or sweats. Denies bloody stools, denies coughing up blood. Denies change in urinary or bowel habits-reports daily bowel movement denies chest pain, palpitations. Positive nicotine dependence, denies alcohol use. Chest x-ray reported no acute cardiopulmonary disease/process. Afebrile, normal WBC, hemoglobin 8.6, platelets 324 INR 0.9, electrolytes within normal limits, bicarb 22, BUN 12, creatinine 1.06, glucose 100. Lactic acid 2.2, 1.1 post IV fluids. Stool for occult blood negative. Review of Systems ROS Statement: Those systems with pertinent positive or pertinent negative responses have been documented in the HPI. ROS Other: All systems not noted in ROS Statement are negative. Past Medical History Past Medical History: Cancer, COPD, Hypertension Additional Past Medical History / Comment(s): Kidney cancer History of Any Multi-Drug Resistant Organisms: None Reported Past Surgical History: No Surgical Hx Reported Additional Past Surgical History / Comment(s): mass removed from kidney Past Anesthesia/Blood Transfusion Reactions: No Reported Reaction Past Psychological History: Anxiety, Bipolar, Depression Smoking Status: Current every day smoker Past Alcohol Use History: None Reported Past Drug Use History: Marijuana Medications and Allergies Home Medications Medication Instructions Recorded Confirmed Type Albuterol Inhaler [Ventolin Hfa 2 puff INHALATION RT-QID PRN #1 02/17/19 12/19/24 Rx Inhaler] puff Apixaban [Eliquis] 5 mg PO BID 12/19/24 12/19/24 History Atorvastatin [Lipitor] 20 mg PO HS 12/19/24 12/19/24 History Buprenorphine HCl/Naloxone HCl 0.5 film SUBLINGUAL HS 12/19/24 12/19/24 History [Suboxone 4 mg-1 mg Sl Film] Buprenorphine HCl/Naloxone HCl 1 film SUBLINGUAL DAILY 12/19/24 12/19/24 History [Suboxone 4 mg-1 mg Sl Film] DULoxetine HCL [Cymbalta] 60 mg PO DAILY 12/19/24 12/19/24 History Empagliflozin [Jardiance] 25 mg PO DAILY 12/19/24 12/19/24 History Ferrous Sulfate [Feosol] 325 mg PO DAILY 12/19/24 12/19/24 History Metoprolol Succinate (ER) [Toprol 50 mg PO DAILY 12/19/24 12/19/24 History Xl] Pantoprazole [Protonix] 40 mg PO BID 12/19/24 12/19/24 History Sucralfate [Carafate] 1 gm PO BID 12/19/24 12/19/24 History Tamsulosin HCl [Flomax] 0.4 mg PO DAILY 12/19/24 12/19/24 History Valsartan [Diovan] 160 mg PO DAILY 12/19/24 12/19/24 History amLODIPine [Norvasc] 5 mg PO DAILY 12/19/24 12/19/24 History metFORMIN HCL [metFORMIN HCL ER] 1,500 mg PO HS 12/19/24 12/19/24 History Allergies Allergy/AdvReac Type Severity Reaction Status Date / Time No Known Allergies Allergy Verified 12/19/24 15:17 Physical Exam Osteopathic Statement: *. No significant issues noted on an osteopathic structural exam other than those noted in the History and Physical/Consult. Vitals: Vital Signs Temp Pulse Resp BP Pulse Ox 12/19/24 12:57 97.8 F 101 H 22 117/70 98 Intake and Output 12/19/24 12/19/24 12/19/24 06:59 14:59 22:59 Other: Weight 91.626 kg PHYSICAL EXAM: VITAL SIGNS: [Reviewed] GENERAL: Alert and oriented x 3, no acute distress HEENT: Conjunctivae normal. eyes normal. NECK: Supple, no JVD. No thyroid enlargement. No LNs CARDIOVASCULAR: S1, S2 regular. No murmur RESPIRATION: Unlabored, breath sounds diminished in the bases. ABDOMEN: Soft, nontender . No guarding. no masses palpable.Bowel sounds heard. LEGS: No edema. no swelling NERVOUS SYSTEM: Cranial N 2-12 grossly normal. Skin: warm and dry, no rash. Results CBC & Chem 7: 12/20/24 07:33 12/20/24 07:33 Labs: Abnormal Lab Results - Last 24 Hours (Table) 12/19/24 12/19/24 12/19/24 Range/Units 13:31 13:31 13:31 Hgb 8.6 L (13.0-17.0) g/dL Hct 31.4 L (39.6-50.0) % MCV 63.8 L (80.0-97.0) fL MCH 17.5 L (27.0-32.0) pg MCHC 27.4 L (32.0-37.0) g/dL Basophils # 0.13 H (0.00-0.10) 10*3/uL Glucose 100 H (74-99) mg/dL Plasma Lactic Acid Michael 2.2 H* (0.7-2.0) mmol/L Assessment and Plan Assessment: Dysphagia ,achalasia Recent weight loss of 28 pounds over the last month secondary to the above Lactic acidosis resolved with IV fluid hydration Chronic A-fib on Eliquis Anemia, recently started on iron Generalized weakness secondary to all the above Nicotine dependence COPD Hypertension Depression Plan: Continue on current medication regimen ,monitoring and symptomatic treatment. IV fluid hydration , PPI for GI prophylaxis and home meds have been ordered .general surgery consulted for endoscopy regarding patient's achalasia- rule out growth or cause of esophageal obstruction. Speech therapy consulted for swallow eval./dysphagia. smoking cessation reinforced, nicotine patch ordered. CT of chest abdomen pelvis pending. Close monitoring of hemoglobin, renal function with repeat labs ordered for a.m. The impression and plan of care has been dictated as directed. : I performed a history and examination of this patient, discussed the same with the dictator. I agree with the dictator's note ,documented as a scribe. Any additional findings or plans will be noted.
[2024-12-19] MEDS ORDERED: RX INFO: IV CONTRAST WAS GIVEN 1 EACH MISC MISCELLANE PRN (18:30)
--- NOTE | 2024-12-19 18:30 | P.CON ---
Consult Note - . Consult date: 12/19/24 Assessment/Plan:: This is a 59-year-old gentleman presented to the [facility] ER with progressive difficulty swallowing, 28 pound weight loss over 1 month accompanied by exertional shortness of breath , increased weakness and lightheadedness. Recently started on iron, Carafate and PPI with minimal improvement. Minimal diet intake, related to food getting stuck. Denies pain, denies chills or sweats. Denies bloody stools, denies coughing up blood. Denies change in urinary or bowel habits-reports daily bowel movement denies chest pain, palpitations. Positive nicotine dependence, denies alcohol use. Review of Systems ROS Statement: Those systems with pertinent positive or pertinent negative responses have been documented in the HPI. ROS Other: All systems not noted in ROS Statement are negative. Past Medical History Past Medical History: Cancer, COPD, Hypertension Additional Past Medical History / Comment(s): Kidney cancer History of Any Multi-Drug Resistant Organisms: None Reported Past Surgical History: No Surgical Hx Reported Additional Past Surgical History / Comment(s): mass removed from kidney Past Anesthesia/Blood Transfusion Reactions: No Reported Reaction Past Psychological History: Anxiety, Bipolar, Depression Smoking Status: Current every day smoker Past Alcohol Use History: None Reported Past Drug Use History: Marijuana PHYSICAL EXAM: VITAL SIGNS: [Reviewed] GENERAL: Alert and oriented x 3, no acute distress HEENT: Conjunctivae normal. eyes normal. NECK: Supple, no JVD. No thyroid enlargement. No LNs CARDIOVASCULAR: S1, S2 regular. No murmur RESPIRATION: Unlabored, breath sounds diminished in the bases. ABDOMEN: Soft, nontender . No guarding. no masses palpable.Bowel sounds heard. LEGS: No edema. no swelling NERVOUS SYSTEM: Cranial N 2-12 grossly normal. Skin: warm and dry, no rash. 59 year old male with dysphagia, unintentional weight loss, and anemia -Will plan for EGD and Colonoscopy Sunday -CT Chest, Abdomen, and Pelvis Ordered -Clear Liquid Diet -Medicine Matt Radford [facility] [phone]
--- NOTE | 2024-12-19 19:32 | CT ---
EXAMINATION TYPE: CT ChestAbdPelvis w con DATE OF EXAM: 12/19/2024 7:17 PM COMPARISON: None available. CLINICAL INDICATION: Male, 59 years old with history of Dysphagia, weight loss; PHH, DYSPHAGIA, WEIGH T LOSS Technique: CT ChestAbdPelvis w con; Multiple axial images were obtained. Two-dimensional coronal and sagittal reconstructions were obtained. Contrast used:100 mL of Isovue 300 with IV Contrast, (None if empty) Oral contrast used: with Oral Contrast CT DLP: 1438 mGycm, Automated exposure control for dose reduction was used. Findings: CHEST: LUNGS/ PLEURA: No focal consolidation, pneumothorax or pleural effusion. AIRWAY: Patent and unremarkable. HEART: Size within normal limits.Coronary artery calcifications. MEDIASTINUM: No gross evidence of adenopathy. Mild circumferential wall thickening of the visualized thoracic esophagus. VASCULATURE: No aortic aneurysm. MUSCULOSKELETAL: No acute osseous abnormalities. SOFT TISSUES/LYMPH NODES: Unremarkable. LOWER NECK: No significant findings. ABDOMEN: ABDOMEN LIVER: Unremarkable GALLBLADDER AND BILE DUCTS: Unremarkable. PANCREAS: Unremarkable. SPLEEN: Unremarkable. ADRENAL GLANDS: Unremarkable. KIDNEYS AND URETERS: No evidence of hydronephrosis or renal calculus. The ureters are unremarkable. Nonspecific mild asymmetric right perinephric fat stranding. No convincing CT evidence of acute pyelo nephritis. Simple cyst in the left kidney. PELVIS BLADDER: Unremarkable REPRODUCTIVE: Unremarkable. ABDOMEN & PELVIS STOMACH AND BOWEL: Stomach and duodenum are unremarkable. Moderate to large volume colonic stool jean en. No evidence of bowel obstruction. PERITONEUM/RETROPERITONEUM: No evidence of pneumoperitoneum or free fluid. VASCULATURE: No evidence of aortic aneurysm. MUSCULOSKELETAL: No acute osseous abnormalities LYMPH NODES: No gross evidence for lymphadenopathy. SOFT TISSUE/ABDOMINAL WALL: Unremarkable IMPRESSION: * No acute abnormality in the chest/abdomen/pelvis. * Nonspecific circumferential wall thickening of the visualized thoracic esophagus. Recommend outpat ient EGD/direct visualization for further evaluation if clinically warranted. * Moderate to large volume ascites also present suggesting constipation. [facility], , 12/19/2024 7:30 PM
[2024-12-19] MEDS: NON FORMULARY DRUG (Buprenorphine Hcl/Naloxone Hcl [Suboxone 4 Mg-1 Mg Sl Film] 1 EACH Fil SUBLINGUAL SCH (22:52)
[2024-12-19] MEDS: ATORVASTATIN 20 MG TAB PO SCH (23:13)
[2024-12-19] MEDS: SUCRALFATE 1 GM TAB PO SCH (23:13)
[2024-12-20] MEDS: ALBUTEROL NEBULIZED 2.5 MG/3 ML INHALATION PRN (01:24)
[2024-12-20 05:44] LABS: Glucose,Whole Blood 135 mg/dL (70-110)
--- NOTE | 2024-12-20 07:57 | P.PN ---
Progress Note - Text Progress Note Date: 12/20/24 No acute events overnight. Tolerating CLD. Denies nausea and vomiting. Denies abdominal pain PHYSICAL EXAM: VITAL SIGNS: [Reviewed] GENERAL: Alert and oriented x 3, no acute distress HEENT: Conjunctivae normal. eyes normal. NECK: Supple, no JVD. No thyroid enlargement. No LNs CARDIOVASCULAR: S1, S2 regular. No murmur RESPIRATION: Unlabored, breath sounds diminished in the bases. ABDOMEN: Soft, nontender . No guarding. no masses palpable.Bowel sounds heard. LEGS: No edema. no swelling NERVOUS SYSTEM: Cranial N 2-12 grossly normal. Skin: warm and dry, no rash. 59 year old male with dysphagia, unintentional weight loss, and anemia -Will plan for EGD and Colonoscopy Sunday -Esophagram Ordered -CT Chest, Abdomen, and Pelvis showed circumferential thickening of mid thoracic esophagus -Clear Liquid Diet -Medicine Recs Javi Radford [facility] [phone]
[2024-12-20] MEDS: FERROUS SULFATE 325 MG TAB PO SCH (08:08)
[2024-12-20] MEDS: amLODIPine 5 MG TAB PO SCH (08:10)
[2024-12-20] MEDS: METOPROLOL SUCCINATE (ER) 50 MG TAB.ER.24H PO SCH (08:11)
[2024-12-20] MEDS: TAMSULOSIN 0.4 MG CAP.ER.24H PO SCH (08:11)
[2024-12-20] MEDS: PANTOPRAZOLE 40 MG/10 ML VIAL IV SCH (08:11)
[2024-12-20] MEDS: DULoxetine HCL 60 MG CAPSULE.DR PO SCH (08:11)
[2024-12-20 08:24] LABS: Basophils # (A) 0.12 10*3/uL (0.00-0.10); Basophils % (A) 1.2 %; Eosinophils % (A) 1.9 %; HCT 32.4 % (39.6-50.0); HGB 8.7 g/dL (13.0-17.0); Immature Platelet Fraction 4.2 % (1.1-6.1); Lymphocytes # (A) 3.04 10*3/uL (0.90-5.00); Lymphocytes % (A) 29.3 %; MCH 17.3 pg (27.0-32.0); MCHC 26.9 g/dL (32.0-37.0); MCV 64.5 fL (80.0-97.0); Mean Platelet Volume 10.4 fL (9.5-12.2); Monocytes # (A) 0.86 10*3/uL (0.20-1.00); Monocytes % (A) 8.3 %; Neutrophils # (A) 6.11 10*3/uL (1.80-7.70); Platelet Count 364 10*3/uL (140-440); RBC 5.02 10*6/uL (4.40-5.60); RDW 21.5 % (11.5-14.5); WBC 10.36 10*3/uL (4.50-10.00)
[2024-12-20 08:45] LABS: ALT 12 U/L (4-49); AST 21 U/L (17-59); African American GFR (CKD) >90 (>60 ml/min/1.73 sqM); Albumin 4.2 g/dL (3.5-5.0); Albumin/Globulin Ratio 1.5; Alkaline Phosphatase 49 U/L (38-126); Anion Gap 9 mmol/L; Blood Urea Nitrogen 10 mg/dL (9-20); Calcium 9.3 mg/dL (8.4-10.2); Carbon Dioxide 26 mmol/L (22-30); Chloride 102 mmol/L (98-107); Globulin 2.8 g/dL; Glucose 101 mg/dL (74-99); Magnesium 2.1 mg/dL (1.6-2.3); Non-African American GFR(CKD) 86 (>60 ml/min/1.73 sqM); Potassium 4.7 mmol/L (3.5-5.1); Sodium 137 mmol/L (137-145); Total Bilirubin 0.8 mg/dL (0.2-1.3)
[2024-12-20] MEDS: VALSARTAN 160 MG TAB PO SCH (10:34)
--- NOTE | 2024-12-20 14:29 | P.PN ---
Subjective Progress Note Date: 12/20/24 Principal diagnosis: Difficulty swallowing with eructation This is a known patient to the practice for longstanding history of opiate for chronic pain presented to the office approximately 28 pounds weight loss over the last 6 weeks with difficulty swallowing regurgitating food Objective - Vital Signs Vital signs: Vital Signs Temp 98.1 F 12/20/24 08:16 Pulse 86 12/20/24 13:19 Resp 16 12/20/24 13:05 BP 124/89 12/20/24 13:05 Pulse Ox 96 12/20/24 13:05 FiO2 Intake & Output 12/19/24 12/20/24 12/20/24 18:59 06:59 18:59 Weight 91.626 kg - Exam General: [Patient awake, alert and oriented times 3. Patient in no acute distress.] HEENT: [PERRL. EOMI. No pharyngeal erythema or exudate.] Neck: [No adenopathy.] Cardiac: [Heart regular in rate and rhythm. No S3. No S4. No clicks, rubs. No murmur.] Lungs: [Clear to auscultation bilaterally.] Abdomen: [No mass. No organomegaly. Bowel sounds presnt and normoactive in all 4 quadrants.] Extremes: [No edema no cyanosis no claudication normal pulses] : Male genitalia Musculoskeletal: [No joint erythema, edema or tenderness.] Skin: Multiple tattoos bilateral arms trunk and legs Neurologic: [No lateralizing deficits. CN II - XII grossly intact.] Lymphatic: [No adenopathy.] - Labs CBC & Chem 7: 12/20/24 07:33 12/20/24 07:33 Labs: Abnormal Lab Results - Last 24 Hours (Table) 12/20/24 12/20/24 12/20/24 Range/Units 05:43 07:33 07:33 WBC 10.36 H (4.50-10.00) 10*3/uL Hgb 8.7 L (13.0-17.0) g/dL Hct 32.4 L (39.6-50.0) % MCV 64.5 L (80.0-97.0) fL MCH 17.3 L (27.0-32.0) pg MCHC 26.9 L (32.0-37.0) g/dL RDW 21.5 H (11.5-14.5) % Basophils # 0.12 H (0.00-0.10) 10*3/uL Glucose 101 H (74-99) mg/dL POC Glucose (mg/dL) 135 H (70-110) mg/dL Assessment and Plan Assessment: Dysphagia ,achalasia Recent weight loss of 28 pounds over the last month secondary to the above Lactic acidosis resolved with IV fluid hydration Chronic A-fib on Eliquis Anemia, recently started on iron Generalized weakness secondary to all the above Nicotine dependence COPD Hypertension Depression Plan: Continue on current medication regimen ,monitoring and symptomatic treatment. IV fluid hydration , PPI for GI prophylaxis and home meds have been ordered .general surgery consulted for endoscopy regarding patient's achalasia- rule out growth or cause of esophageal obstruction. Speech therapy consulted for swallow eval./dysphagia. smoking cessation reinforced, nicotine patch ordered. CT of chest abdomen pelvis pending. Close monitoring of hemoglobin, renal function with repeat labs ordered for a.m. The impression and plan of care has been dictated as directed. : I performed a history and examination of this patient, discussed the same with the dictator. I agree with the dictator's note ,documented as a scribe. Any additional findings or plans will be noted. Plan: As stated above Surgery consultation noted Swallow study and subsequent EGD scheduled for Sunday Time with Patient: Greater than 30
[2024-12-20] MEDS: NON FORMULARY DRUG (Buprenorphine Hcl/Naloxone Hcl [Suboxone 4 Mg-1 Mg Sl Film] 1 EACH Fil SUBLINGUAL SCH (16:27)
[2024-12-20] MEDS: BUPRENORPHINE-NALOX 8-2 MG TAB 1 EACH TAB.SUBL SL SCH (20:47)
[2024-12-21] MEDS: BUPRENORPHINE-NALOX 8-2 MG TAB 1 EACH TAB.SUBL SL SCH (09:07)
--- NOTE | 2024-12-21 10:50 | P.PN ---
Progress Note - Text Progress Note Date: 12/21/24 No acute events overnight. PHYSICAL EXAM: VITAL SIGNS: [Reviewed] GENERAL: Alert and oriented x 3, no acute distress HEENT: Conjunctivae normal. eyes normal. NECK: Supple, no JVD. No thyroid enlargement. No LNs CARDIOVASCULAR: S1, S2 regular. No murmur RESPIRATION: Unlabored, breath sounds diminished in the bases. ABDOMEN: Soft, nontender . No guarding. no masses palpable.Bowel sounds heard. LEGS: No edema. no swelling NERVOUS SYSTEM: Cranial N 2-12 grossly normal. Skin: warm and dry, no rash. 59 year old male with dysphagia, unintentional weight loss, and anemia -Will plan for EGD and Colonoscopy tomorrow -Bowel Prep today -Esophagram Ordered -CT Chest, Abdomen, and Pelvis showed circumferential thickening of mid thoracic esophagus -Clear Liquid Diet, NPO/midnight -Medicine Recs Javi Radford [facility] [phone]
--- NOTE | 2024-12-21 11:26 | P.PN ---
Subjective Progress Note Date: 12/21/24 Principal diagnosis: Difficulty swallowing with eructation This is a known patient to the practice for longstanding history of opiate use, for chronic pain, presented to the emergency room ,approximately 28 pounds weight loss over the last 6 weeks with difficulty swallowing regurgitating food Objective - Vital Signs Vital signs: Vital Signs Temp 98.1 F 12/21/24 07:53 Pulse 84 12/21/24 09:18 Resp 18 12/21/24 07:53 BP 129/64 12/21/24 07:53 Pulse Ox 97 12/21/24 09:06 FiO2 Intake & Output 12/20/24 12/21/24 12/21/24 18:59 06:59 18:59 Intake Total 240 Balance 240 Weight 91.626 kg Intake: Oral 240 Other: # Voids 1 1 - Exam General: [Patient awake, alert and oriented times 3. Patient in no acute distress.] HEENT: [PERRL. EOMI. No pharyngeal erythema or exudate.] Neck: [No adenopathy.] Cardiac: [Heart regular in rate and rhythm. No S3. No S4. No clicks, rubs. No murmur.] Lungs: [Clear to auscultation bilaterally.] Abdomen: [No mass. No organomegaly. Bowel sounds presnt and normoactive in all 4 quadrants.] Extremes: [No edema no cyanosis no claudication normal pulses] : Male genitalia Musculoskeletal: [No joint erythema, edema or tenderness.] Skin: Multiple tattoos bilateral arms trunk and legs Neurologic: [No lateralizing deficits. CN II - XII grossly intact.] Lymphatic: [No adenopathy.] - Labs CBC & Chem 7: 12/20/24 07:33 12/20/24 07:33 Assessment and Plan Assessment: Dysphagia ,achalasia Recent weight loss of 28 pounds over the last month secondary to the above Lactic acidosis resolved with IV fluid hydration Chronic A-fib on Eliquis Anemia, recently started on iron Generalized weakness secondary to all the above Nicotine dependence COPD Hypertension Depression Plan: Continue on current medication regimen ,monitoring and symptomatic treatment. IV fluid hydration , PPI for GI prophylaxis and home meds have been ordered .general surgery consulted for endoscopy regarding patient's achalasia- rule out growth or cause of esophageal obstruction. Speech therapy consulted for swallow eval./dysphagia. smoking cessation reinforced, nicotine patch ordered. CT of chest abdomen pelvis pending. Close monitoring of hemoglobin, renal function with repeat labs ordered for a.m. The impression and plan of care has been dictated as directed. : I performed a history and examination of this patient, discussed the same with the dictator. I agree with the dictator's note ,documented as a scribe. Any additional findings or plans will be noted. Plan: As stated above Surgery consultation noted Swallow study and subsequent EGD scheduled for Sunday Time with Patient: Greater than 30
[2024-12-21] MEDS: PEG 3350 (236 GM/BTL) + LYTES 4,000 ML BOTTLE PO ONE (11:38)
[2024-12-22] MEDS: IV FLUID CONTINUATION 1,000 ML IV ONE (14:23)
[2024-12-22] MEDS ORDERED: LIDOCAINE 2% (PF) 20 MG/ML 5 ML VIAL ONE (14:24)
[2024-12-22] MEDS ORDERED: PROPOFOL 10 MG/ML 20 ML VIAL IV ONE (14:24)
--- NOTE | 2024-12-22 14:31 | P.PN ---
Subjective Progress Note Date: 12/22/24 H&P Date: 12/19/24 Chief Complaint: Difficulty swallowing, weight loss This is a 59-year-old gentleman with past medical history significant for A-fib on Eliquis ,COPD, hypertension, anxiety, depression, ongoing nicotine dependence presented to the ER with progressive difficulty swallowing, 28 pound weight loss over 1 month accompanied by exertional shortness of breath , increased weakness and lightheadedness. Recently started on iron, Carafate and PPI with minimal improvement. Minimal diet intake, related to food getting stuck. Denies pain, denies chills or sweats. Denies bloody stools, denies coughing up blood. Denies change in urinary or bowel habits-reports daily bowel movement denies chest pain, palpitations. Positive nicotine dependence, denies alcohol use. Chest x-ray reported no acute cardiopulmonary disease/process. Afebrile, normal WBC, hemoglobin 8.6, platelets 324 INR 0.9, electrolytes within normal limits, bicarb 22, BUN 12, creatinine 1.06, glucose 100. Lactic acid 2.2, 1.1 post IV fluids. Stool for occult blood negative. 12/22/[address] reported no acute abnormality in the chest abdomen or pelvis. Nonspecific circumferential wall thickening of the visualized thoracic esophagus. Moderate to large volume ascites suggesting constipation . n.p.o., completed prep, scheduled for EGD and colonoscopy today. Glucose 101. Denies nausea, vomiting. Denies abdominal pain. denies chest pain, palpitations or shortness of breath. Maintaining O2 sats in the 90s on room air. afebrile.Hemoglobin 8.7, platelets 364. Renal function, electrolytes stable. Objective - Vital Signs Vital signs: Vital Signs Temp 98.2 F 12/22/24 13:00 Pulse 80 12/22/24 13:00 Resp 16 12/22/24 13:00 BP 140/63 12/22/24 13:00 Pulse Ox 96 12/22/24 13:00 FiO2 Intake & Output 12/21/24 12/22/24 12/22/24 18:59 06:59 18:59 Intake Total 1620 2040 Balance 1620 2040 Intake: Intake, IV Titration 1560 Amount Sodium Chloride 0.9% 1, 1560 000 ml @ 130 mls/hr IV . Q7H42M [facility] Rx#:[id number] Oral 1620 480 Other: # Voids 0 3 # Bowel Movements 3 - Exam PHYSICAL EXAM: VITAL SIGNS: [Reviewed] GENERAL: Alert and oriented x 3, no acute distress HEENT: Conjunctivae normal. eyes normal. NECK: Supple, no JVD. CARDIOVASCULAR: S1, S2 regular. No murmur RESPIRATION: Unlabored, breath sounds diminished in the bases. ABDOMEN: Soft, nontender . No guarding.positive bowel sounds. LEGS: No edema. no swelling NERVOUS SYSTEM: Cranial N 2-12 grossly normal. Skin: warm and dry, no rash. - Labs CBC & Chem 7: 12/20/24 07:33 12/20/24 07:33 Assessment and Plan Assessment: Dysphagia ,achalasia Recent weight loss of 28 pounds over the last month secondary to the above Lactic acidosis resolved with IV fluid hydration Chronic A-fib on Eliquis Anemia, recently started on iron Generalized weakness secondary to all the above Nicotine dependence COPD Hypertension Depression Plan: Continue on current medication regimen ,monitoring and symptomatic treatment. NPO, IV fluid hydration. EGD and colonoscopy scheduled for today. Close monitoring of hemoglobin, renal function with repeat labs ordered for a.m. The impression and plan of care has been dictated as directed. : I performed a history and examination of this patient, discussed the same with the dictator. I agree with the dictator's note ,documented as a scribe. Any additional findings or plans will be noted.
--- NOTE | 2024-12-22 15:05 | P.PCN ---
Date of Procedure: 12/22/24 Preoperative Diagnosis: Dysphagia Symptomatic anemia Postoperative Diagnosis: Hiatal hernia Gastritis Normal colon Procedure(s) Performed: EGD with biopsy Colonoscopy Anesthesia: MAC Surgeon: Elodia Montero Pathology: other (Biopsy of duodenum, antrum) Condition: stable Disposition: floor Indications for Procedure: 59-year-old male with dysphagia and anemia and weight loss. Plan for upper and lower endoscopy. Risks, benefits and alternatives were provided to the patient. All questions answered prior to attending endoscopy suite. Operative Findings: Gastritis Hiatal hernia Normal colon Description of Procedure: The patient was brought into the endoscopy suite and placed in left lateral decubitus position. Adequate sedation was achieved using conscious sedation. A bite-block was placed and an endoscope was placed in the oropharynx and advanced under endoscopic visualization. The endoscope was advanced through the esophagus into the stomach, through the gastric antrum and in through the pylorus. The third portion of duodenum was visualized. The endoscope was then slowly withdrawn. The first portion of duodenum was noted to have mild inflammatory changes. Biopsies were taken. The antrum was noted to have mild inflammatory changes. Biopsies were taken. The gastric body distended normally and the gastric folds appeared normal and flattened with insufflation. A retroflexed view of the fundus and GE junction revealed mild hiatal hernia. GE junction appeared normal. The esophagus appeared endoscopically normal. No stricturing noted. Excess air was removed and the scope was withdrawn. The patient was brought to the endoscopy suite and placed in left lateral decubitus position and adequate sedation was achieved using conscious sedation. Digital rectal exam was performed and mild internal hemorrhoids were palpated. An endoscope was then placed in the rectum and advanced to the cecum as identified by landmarks including the appendiceal orifice and the ileocecal valve. The prep was good. The colonoscope was then slowly withdrawn, examining for any mucosal abnormalities. The cecum, ascending, transverse, descending and sigmoid colon were visualized adequately. There were no large neoplastic lesions noted throughout the colon. No obvious polyps noted throughout the colon. No evidence of diverticulosis. Hemostasis was maintained. Retroflexion was performed in the rectum and internal hemorrhoid. Excess air was removed, the colonoscope withdrawn and the procedure terminated. The patient was then transferred to the recovery unit in stable condition. Repeat colonoscopy should be performed in 10 years.
[2024-12-23 09:17] LABS: Basophils # (A) 0.11 10*3/uL (0.00-0.10); Basophils % (A) 1.5 %; Eosinophils # (A) 0.15 10*3/uL (0.04-0.35); Eosinophils % (A) 2.1 %; HCT 28.1 % (39.6-50.0); HGB 7.7 g/dL (13.0-17.0); Lymphocytes % (A) 30.2 %; MCH 17.8 pg (27.0-32.0); MCHC 27.4 g/dL (32.0-37.0); MCV 64.9 fL (80.0-97.0); Mean Platelet Volume 10.2 fL (9.5-12.2); Monocytes # (A) 0.62 10*3/uL (0.20-1.00); Monocytes % (A) 8.5 %; Neutrophils # (A) 4.19 10*3/uL (1.80-7.70); Neutrophils % (A) 57.4 %; Platelet Count 344 10*3/uL (140-440); RBC 4.33 10*6/uL (4.40-5.60); RDW 22.3 % (11.5-14.5); WBC 7.29 10*3/uL (4.50-10.00)
[2024-12-23 11:12] LABS: Anisocytosis (M) Present; Ovalocytes Present
--- NOTE | 2024-12-23 13:09 | P.PN ---
Subjective Progress Note Date: 12/23/24 SURGICAL PROGRESS NOTE CHIEF COMPLAINT: Dysphagia HISTORY OF PRESENT ILLNESS: Patient's status post EGD and colonoscopy with results reporting hiatal hernia, gastritis and normal colonoscopy. Patient rep orts she is able to drink this morning. Afebrile. WBC 7.29 Hgb 7.7 PHYSICAL EXAM: VITAL SIGNS: Reviewed. GENERAL: Well-developed in no acute distress. ABDOMEN: Soft. Nondistended. Nontender. NEUROLOGIC: Alert and oriented. Cranial nerves II through XII grossly intact. ASSESSMENT: 1. Dysphagia 2. Unintentional weight loss 3. Anemia 4. Status post EGD reporting hiatal hernia and gastritis. Colonoscopy normal PLAN: - Upper GI ordered for today - Currently n.p.o. - Further recommendations forthcoming per surgeon Physician Fret Saw Operator note has been reviewed by physician. Signing provider agrees with the documented findings, assessment, and plan of care. Attestation Patient seen and examined at bedside. Upper GI performed with finding of stenosis at the distal GE junction. On EGD yesterday, no evidence of obstruction or stenosis as scope was easily passed through. Hiatal hernia likely cause of this. Patient can follow-up as outpatient for further workup and possible surgical planning. Elodia Montero, Objective - Vital Signs Vital signs: Vital Signs Temp 98.3 F 12/23/24 07:42 Pulse 68 12/23/24 11:40 Resp 16 12/23/24 08:00 BP 161/70 12/23/24 07:42 Pulse Ox 95 12/23/24 07:42 FiO2 Intake & Output 12/22/24 12/23/24 12/23/24 18:59 06:59 18:59 Intake Total 1710 3720 Balance 1710 3720 Intake: IV 50 Intake, IV Titration 3120 Amount Sodium Chloride 0.9% 1, 3120 000 ml @ 130 mls/hr IV . Q7H42M [facility] Rx#:[id number] Oral 1660 600 Other: # Voids 2 - Labs CBC & Chem 7: 12/23/24 08:57 12/20/24 07:33 Labs: Abnormal Lab Results - Last 24 Hours (Table) 12/23/24 Range/Units 08:57 RBC 4.33 L (4.40-5.60) 10*6/uL Hgb 7.7 L (13.0-17.0) g/dL Hct 28.1 L (39.6-50.0) % MCV 64.9 L (80.0-97.0) fL MCH 17.8 L (27.0-32.0) pg MCHC 27.4 L (32.0-37.0) g/dL RDW 22.3 H (11.5-14.5) % Basophils # 0.11 H (0.00-0.10) 10*3/uL
[2024-12-23 13:24] VITALS: BP 127/70; PULSE 78; RESP 18; TEMP 97.7
--- NOTE | 2024-12-23 13:44 | FL ---
EXAMINATION TYPE: FL UGI w esophagus DATE OF EXAM: 12/23/2024 1:28 PM COMPARISON: 12/19/2024. CLINICAL INDICATION:Male, 59 years old with history of Esophageal Mass; TECHNIQUE: The procedure was explained and patient history elicited. All patient questions were ans wered prior to start of procedure. A senior infrastructure engineer radiograph of the abdomen was also reviewed. Multiple flu oroscopic spot images of the esophagus, stomach and duodenum were obtained following ingestion of liq uid barium and EZ-gas crystals. DAP: No recorded [id number] FINDINGS: There is a significant obstruction of the distal esophagus without definitive mass visualized. Obstru ction. lead to aspiration with patient coughing and barium extending into the left lower lobe airways. There is persistent barium in the esophagus. The exam was terminated at the time of aspiration. IMPRESSION: Significant stenosis of the gastroesophageal junction with eventual moderate aspiration with cough re flex. Correlate with EGD findings for mass. [facility], , 12/23/2024 1:36 PM
--- NOTE | 2024-12-24 09:58 | P.DS ---
Providers Date of admission: 12/19/24 16:19 Expected date of discharge: 12/23/24 Attending physician: Pavel Israel Consults: 12/19/24 15:19 Consult Physician Routine Consulting Provider: Javi Radford Consult Reason/Comments: Endoscopy Do you want consulting provider notified?: Yes Primary care physician: Dinesh Jeanes Hospital Course: Final Diagnosis: Dysphagia ,achalasia. Status post EGD reporting no evidence of stenosis/stricturing, hiatal hernia,gastritis, biopsies obtained. colonoscopy reported normal colon.Upper GI performed with finding of significant stenosis at the distal GE junction. Further follow-up with general surgery outpatient regarding further workup and possible OR. Recent weight loss of 28 pounds over the last month secondary to the above Lactic acidosis resolved with IV fluid hydration Chronic A-fib on Eliquis Anemia, recently started on iron. Repeat CBC outpatient in clinic with PCP. Generalized weakness secondary to all the above Nicotine dependence COPD Hypertension Depression Hospital course:This is a 59-year-old gentleman with past medical history significant for A-fib on Eliquis ,COPD, hypertension, anxiety, depression, ongoing nicotine dependence presented to the ER with progressive difficulty swallowing, 28 pound weight loss over 1 month accompanied by exertional shortness of breath , increased weakness and lightheadedness. Recently started on iron, Carafate and PPI with minimal improvement. Minimal diet intake, related to food getting stuck. Denies pain, denies chills or sweats. Denies bloody stools, denies coughing up blood. Denies change in urinary or bowel habits-reports daily bowel movement denies chest pain, palpitations. Positive nicotine dependence, denies alcohol use. Chest x-ray reported no acute cardiopulmonary disease/process. Afebrile, normal WBC, hemoglobin 8.6, platelets 324 INR 0.9, electrolytes within normal limits, bicarb 22, BUN 12, creatinine 1.06, glucose 100. Lactic acid 2.2, 1.1 post IV fluids. Stool for occult blood negative. 12/22/[address] reported no acute abnormality in the chest abdomen or pelvis. Nonspecific circumferential wall thickening of the visualized thoracic esophagus. Moderate to large volume ascites suggesting constipation . n.p.o., completed prep, scheduled for EGD and colonoscopy today. Glucose 101. Denies nausea, vomiting. Denies abdominal pain. denies chest pain, palpitations or shortness of breath. Maintaining O2 sats in the 90s on room air. afebrile.Hemoglobin 8.7, platelets 364. Renal function, electrolytes stable. Status post EGD reporting hiatal hernia, gastritis. Colonoscopy reported normal.Upper GI performed with finding of stenosis at the distal GE junction. Patient has been cleared for discharge by general surgery with recommendations to follow-up for further workup and possible surgery. Patient currently reports he is able to drink without difficulty. Afebrile, normal WBC, 7.29. Hemoglobin 7.7. Denies chest pain, palpitations or shortness of breath. Maintaining O2 sats in the mid 90s on room air. Patient will be discharged home today in stable condition with guarded prognosis. The impression and plan of care has been dictated as directed. : I performed a history and examination of this patient, discussed the same with the dictator. I agree with the dictator's note ,documented as a scribe. Any additional findings or plans will be noted. Patient Condition at Discharge: Stable Plan - Discharge Summary New Discharge Prescriptions: Continue Albuterol Inhaler [Ventolin Hfa Inhaler] 2 puff INHALATION RT-QID PRN #1 puff PRN Reason: Shortness Of Breath Or Wheezing Buprenorphine HCl/Naloxone HCl [Suboxone 4 mg-1 mg Sl Film] 0.5 film SUBLINGUAL HS Apixaban [Eliquis] 5 mg PO BID Buprenorphine HCl/Naloxone HCl [Suboxone 4 mg-1 mg Sl Film] 1 film SUBLINGUAL DAILY DULoxetine HCL [Cymbalta] 60 mg PO DAILY Atorvastatin [Lipitor] 20 mg PO HS Sucralfate [Carafate] 1 gm PO BID Valsartan [Diovan] 160 mg PO DAILY Ferrous Sulfate [Iron (65 MG Elemental)] 325 mg PO DAILY Tamsulosin HCl [Flomax] 0.4 mg PO DAILY Pantoprazole [Protonix] 40 mg PO BID Empagliflozin [Jardiance] 25 mg PO DAILY metFORMIN HCL [metFORMIN HCL ER] 1,500 mg PO HS amLODIPine [Norvasc] 5 mg PO DAILY Metoprolol Succinate (ER) [Toprol XL] 50 mg PO DAILY Discharge Medication List Albuterol Inhaler [Ventolin Hfa Inhaler] 2 puff INHALATION RT-QID PRN #1 puff 02/17/19 [Rx] Apixaban [Eliquis] 5 mg PO BID 12/19/24 [History] Atorvastatin [Lipitor] 20 mg PO HS 12/19/24 [History] Buprenorphine HCl/Naloxone HCl [Suboxone 4 mg-1 mg Sl Film] 0.5 film SUBLINGUAL HS 12/19/24 [History] Buprenorphine HCl/Naloxone HCl [Suboxone 4 mg-1 mg Sl Film] 1 film SUBLINGUAL DAILY 12/19/24 [History] DULoxetine HCL [Cymbalta] 60 mg PO DAILY 12/19/24 [History] Empagliflozin [Jardiance] 25 mg PO DAILY 12/19/24 [History] Ferrous Sulfate [Iron (65 MG Elemental)] 325 mg PO DAILY 12/19/24 [History] Metoprolol Succinate (ER) [Toprol XL] 50 mg PO DAILY 12/19/24 [History] Pantoprazole [Protonix] 40 mg PO BID 12/19/24 [History] Sucralfate [Carafate] 1 gm PO BID 12/19/24 [History] Tamsulosin HCl [Flomax] 0.4 mg PO DAILY 12/19/24 [History] Valsartan [Diovan] 160 mg PO DAILY 12/19/24 [History] amLODIPine [Norvasc] 5 mg PO DAILY 12/19/24 [History] metFORMIN HCL [metFORMIN HCL ER] 1,500 mg PO HS 12/19/24 [History] Follow up Appointment(s)/Referral(s): Javi Radford DO [Medical Doctor] - 1 Week Dinesh Kirkpatrick MD [Primary Care Provider] - 1-2 days Patient Instructions/Handouts: Dysphagia (GEN)
== END 2024-12-23 15:27 | disposition home or self-care (01) | DRG 254 ==
LOC: EC 12:48 → 5NMEDONC 16:19
PROVIDERS: ADMIT Family Medicine; ATTEND Family Medicine
PROC: 0DB98ZX Excision of Duodenum, Via Natural or Artificial Opening Endoscopic, Diagnostic (ICD-10-PCS; principal; 2024-12-22 08:00)
PROC: 0DJD8ZZ Inspection of Lower Intestinal Tract, Via Natural or Artificial Opening Endoscopic (ICD-10-PCS; 2024-12-22 08:00)
DX: R13.10 Dysphagia, unspecified (principal); K22.0 Achalasia of cardia; K29.70 Gastritis, unspecified, without bleeding; K44.9 Diaphragmatic hernia without obstruction or gangrene; R53.1 Weakness; Z68.28 Body mass index [BMI] 28.0-28.9, adult; I10 Essential (primary) hypertension; I48.20 Chronic atrial fibrillation, unspecified; E87.20 Acidosis, unspecified; R63.4 Abnormal weight loss; F31.9 Bipolar disorder, unspecified; D64.9 Anemia, unspecified; F17.210 Nicotine dependence, cigarettes, uncomplicated; F41.9 Anxiety disorder, unspecified; J44.9 Chronic obstructive pulmonary disease, unspecified; R18.8 Other ascites; Z79.01 Long term (current) use of anticoagulants; Z79.84 Long term (current) use of oral hypoglycemic drugs; Z79.899 Other long term (current) drug therapy; Z85.528 Personal history of other malignant neoplasm of kidney
CPT/HCPCS: 36415; 43239; 45378; 71046; 71260; 74177; 74240; 80053; 82272; 83605; 83735; 83880; 84484; 85025; 85610; 85730; 88305; 93005; 94640; 94760; 96361; 96374; 96376; 99285